=== PATIENT | female | born 1995 | race Two or more races ===

== ENCOUNTER → 2020-05-04 09:30 | Outpatient (BNVA) | payer MEDICAID, SELFPAY | PROVIDERS: PCP Internal Medicine; Visit Provider Orthopaedic Surgery | DX: G56.01 Carpal tunnel syndrome, right upper limb (principal) | CPT/HCPCS: 99202 ==

== ENCOUNTER → 2020-07-04 13:20 | Outpatient (BNVA) | payer MEDICAID, SELFPAY | PROVIDERS: PCP Internal Medicine; Visit Provider Physician Assistant | DX: G56.01 Carpal tunnel syndrome, right upper limb (principal) | CPT/HCPCS: 99212 ==

== ENCOUNTER 2020-07-06 11:12 | Day surgery (SDC) | payer MEDICAID, SELFPAY ==
--- NOTE | 2020-07-06 11:52 | W.PM.OPN ---
Operative Note Operative Note Date of Service: 07/06/20 Narrative: Preop diagnosis: 1. Right Carpal tunnel syndrome Postop diagnosis: 1. Right Carpal tunnel syndrome Procedure: 1. Right Carpal tunnel release Surgeon: Angela Lambert MD Anesthesia: local block using 1% lidocaine with epinephrine Findings: Thickened transverse carpal ligament. EBL: Less than 5 mL Specimens: None Complications: None Disposition: Brought to recovery room in stable condition Plan: Follow-up for 7-10 days for wound check and suture removal Indications: The patient is 25 years old, with right carpal tunnel syndrome that has been unresponsive to nonoperative management. The risks and benefits of operative treatment including but not limited to risk of damage to blood vessels, nerves, tendons, infection, persistent pain, persistent symptoms, or possible need for additional surgery were discussed with the patient and the patient wishes to proceed with surgery. Procedure: Once consent was obtained a local block was performed using a combination of 1% lidocaine with epinephrine. The patient was then brought back to the operating suite and placed on the operative table in supine position. A tourniquet was applied to the proximal aspect of the right upper extremity and the limb was prepped and draped in a standard surgical fashion. Once assured that we had a good block, a 1.5 cm longitudinal incision was made centered over the right carpal tunnel. The incision was made through the skin to the subcutaneous tissues using a #15 blade. Dissection was made down to the level of the transverse carpal ligament with care being taken to protect the palmar cutaneous nerve. Once the transverse carpal ligament was clearly visualized, a longitudinal incision was made in the transverse carpal ligament 1st using a #15 blade, then using tenotomy scissors under direct visualization. Care was taken to look for and protect the motor branch of the median nerve when seen in this area. Once satisfied with our carpal tunnel release the wound was copiously irrigated with normal saline and hemostasis was obtained with a brief period of local pressure. The skin edges were reapproximated with some 5.0 nylon suture material and a sterile dressing was applied. The patient appears to have tolerated the procedure well and with no complications. All digits were well vascularized at the conclusion of the case.
[2020-07-06 12:01] VITALS: BMI 38.4
[2020-07-06 12:12] VITALS: BP 111/55; PULSE 83; RESP 18; TEMP 36.1; O2SAT 98
[2020-07-06 14:09] VITALS: BP 126/75; PULSE 81; RESP 18; TEMP 37.4; O2SAT 96
--- NOTE | 2020-07-06 14:21 | MHC.SHP ---
Pre-Procedural Eval Section B Chief Complaint: carpal tunnel syndrome Allergies: Allergies Allergy/AdvReac Type Severity Reaction Status Date / Time dicyclomine [Bentyl] Allergy Unknown nausea, Verified 05/21/19 00:00 fatigue, dizziness cholestyramine AdvReac Unknown nausea and Verified 10/12/13 00:00 vomiting Cholestramine Allergy Unknown nausea and Uncoded 05/21/19 00:00 abd pain Plan I have reviewed the history and physical and performed a pertinent physical examination on my patient. No changes have occurred unless specified.
== END 2020-07-06 14:24 | disposition home or self-care (01) ==
PROVIDERS: PCP Internal Medicine; Visit Provider Orthopaedic Surgery
PROC: (CPT 64721; principal; 2020-07-06 13:50)
DX: G56.01 Carpal tunnel syndrome, right upper limb (principal); Z88.8 Allergy status to other drugs, medicaments and biological substances
CPT/HCPCS: 64721

== ENCOUNTER → 2020-07-17 08:45 | Outpatient (BNVA) | payer MEDICAID, SELFPAY | PROVIDERS: Visit Provider Physician Assistant | DX: G56.01 Carpal tunnel syndrome, right upper limb (principal) | CPT/HCPCS: 99212 ==

== ENCOUNTER → 2020-10-10 07:25 | Outpatient (BNVA) | payer MEDICAID, SELFPAY | PROVIDERS: PCP Internal Medicine; Visit Provider Surgery ==

== ENCOUNTER → 2020-10-12 08:12 | Outpatient (BNVA) | payer MEDICAID, SELFPAY | PROVIDERS: PCP Internal Medicine; Visit Provider Dietitian, Registered ==

== ENCOUNTER 2020-10-17 09:38 | Outpatient (REF) | payer MEDICAID, SELFPAY ==
--- NOTE | ~2020-10-17 | XR_ITS ---
EXAMINATION: XR CHEST CLINICAL INFORMATION: Obesity COMPARISON: Previous chest x-ray February 2018 TECHNIQUE: 2 views of the chest were obtained. FINDINGS: No significant abnormality is noted involving the heart, lungs, mediastinum, bony thorax or soft tissues. XR/XR chest 2V IMPRESSION: Unremarkable examination.
--- NOTE | 2020-10-17 09:48 | ECG_ITS ---
Test Reason : OBESITY Blood Pressure : / mmHG Vent. Rate : 089 BPM Atrial Rate : 089 BPM P-R Int : 160 ms QRS Dur : 090 ms QT Int : 362 ms P-R-T Axes : 048 029 026 degrees QTc Int : 440 ms Normal sinus rhythm Normal ECG When compared to the previous EKG of No significant changes seen Referred By: Carmine Castellon Electronically Signed By:Suhas Valenzuela
[2020-10-17 10:21] LABS: MANUAL DIFF FLAG NO
[2020-10-17 10:38] LABS: Estimated Average Glucose 111 mg/dL; Hemoglobin A1c % 5.5 %
[2020-10-17 10:40] LABS: Basophils Percent Auto 0.4 % (0-2); Eosinophils Absolute Auto 0.2 X10*3/uL (0.0-0.4); Eosinophils Percent Auto 2.4 % (0-4); Hematocrit 42.7 % (37-47); Hemoglobin 13.5 g/dl (12.0-16.0); Imm Gran Abs Auto 0.01 X10*3/uL (0.00-0.03); Imm Gran Pct Auto 0.1 % (0.0-0.4); Lymphocytes Absolute Auto 2.3 X10*3/uL (1.2-4.9); Lymphocytes Percent Auto 33.5 % (20-40); Mean Corpuscular HGB Conc 31.6 g/dl (31.0-35.0); Mean Corpuscular Hemoglobin 25.4 pg (27.0-33.0); Mean Corpuscular Volume 80.3 fL (80-98); Mean Platelet Volume 11.6 fL (9.4-12.3); Monocytes Absolute Auto 0.4 X10*3/uL (0.1-1.2); Monocytes Percent Auto 6.3 % (2-11); Neutrophils Absolute Auto 3.8 X10*3/uL (2.0-8.3); Neutrophils Percent Auto 57.3 % (45-73); Platelet Count 230 X10*3/uL (160-400); Red Blood Count 5.32 X10*6/uL (4.20-5.50); Red Cell Distribution Width 13.3 % (11.0-16.0); White Blood Count 6.7 X10*3/uL (4.8-10.8)
[2020-10-17 12:00] LABS: Folate 18.8 ng/mL (> or = 4.0); Vitamin B12 300 pg/mL (200-900)
[2020-10-17 12:53] LABS: Alanine Aminotransferase 28 U/L (0-31); Albumin Level 4.2 g/dL (3.5-5.0); Alkaline Phosphatase 77 U/L (39-117); Anion Gap 11 (12-20); Aspartate Amino Transferase 22 U/L (5-31); Bilirubin Total 0.9 mg/dL (0.0-1.0); Blood Urea Nitrogen 12 mg/dL (9-16); C Reactive Protein 0.86 mg/dL (< or = 0.50); Calcium 9.5 mg/dL (8.4-10.2); Carbon Dioxide 28 mmol/L (22-29); Chloride 105 mmol/L (96-108); Cholesterol 179 mg/dL; Estimated Glomerular Filt Rate > 60; Glucose Random 101 mg/dL (60-115); HDL Cholesterol 42 mg/dL; Iron 78 mcg/dL (30-160); LDL Cholesterol Calculated 108 mg/dl; Percent Iron Saturation 25 % (15-50); Potassium 4.6 mmol/L (3.3-5.1); Sodium 139 mmol/L (135-145); Total Iron Binding Capacity 312 mcg/dL (228-428); Total Protein 7.2 g/dL (6.5-8.0); Triglycerides 148 mg/dL; Unsaturated Iron Binding 234 ug/dL
[2020-10-17 13:14] LABS: Ferritin 35 ng/mL (10-122); TSH reflex Free T4 2.74 uIU/mL (0.32-4.0); Vitamin D 25-OH Total 20.2 ng/mL (>30)
[2020-10-18 09:31] LABS: Insulin Level Total 18.1 uIU/mL
[2020-10-18 14:27] LABS: Calcium (PTHI) 9.2 mg/dL (8.6-10.2); PTHI 69 pg/mL (14-64)
[2020-10-20 17:07] LABS: Zinc 76 mcg/dL (60-130)
[2020-10-20 20:22] LABS: Vitamin A 43 mcg/dL (38-98)
[2020-10-23 08:42] LABS: Vitamin B1 15 nmol/L (8-30)
== END 2020-10-17 09:39 | disposition home or self-care (01) ==
LOC: HO.LAB 09:38
PROVIDERS: PCP Internal Medicine; Visit Provider Surgery
DX: E66.9 Obesity, unspecified (principal); K21.9 Gastro-esophageal reflux disease without esophagitis; Z68.39 Body mass index [BMI] 39.0-39.9, adult
CPT/HCPCS: 36415; 71046; 80053; 80061; 82306; 82607; 82728; 82746; 83036; 83525; 83540; 83970; 84425; 84443; 84590; 84630; 85025; 86140; 93005

== ENCOUNTER → 2020-11-17 07:30 | Outpatient (BNVA) | payer MEDICAID, SELFPAY | PROVIDERS: PCP Internal Medicine; Visit Provider Surgery ==

== ENCOUNTER → 2021-01-04 08:12 | Outpatient (BNVA) | payer MEDICAID, SELFPAY | PROVIDERS: PCP Internal Medicine; Visit Provider Dietitian, Registered | DX: E66.01 Morbid (severe) obesity due to excess calories (principal) | CPT/HCPCS: 97802 ==

== ENCOUNTER 2021-01-05 09:50 | Outpatient (REF) | payer MEDICAID, SELFPAY ==
[2021-01-06 15:43] LABS: H Pylori Breath Test Negative (Negative)
== END 2021-01-05 09:51 | disposition home or self-care (01) ==
LOC: CF 09:50
PROVIDERS: Visit Provider Surgery
DX: A04.8 Other specified bacterial intestinal infections (principal)
CPT/HCPCS: 36415; 83013; 99211

== ENCOUNTER 2021-01-17 09:00 | Outpatient (REF) | payer MEDICAID, SELFPAY ==
--- NOTE | ~2021-01-17 | US_ITS ---
EXAMINATION: US COMPLETE ABDOMEN WITH LIVER ELASTOGRAPHY CLINICAL INFORMATION: Obesity. COMPARISON: None. TECHNIQUE: Real-time imaging of the abdominal viscera. Noninvasive ultrasound liver fibrosis assessment is performed using Rachel ElastPQ point quantification shear wave elastography (pSWE) with a C5-2 MHz transducer. Multiple elastography samples are obtained. FINDINGS: PANCREAS: Normal. The visualized pancreatic head and body are normal in appearance. The remainder of the pancreas is obscured from visualization by the overlying bowel gas. ABDOMINAL AORTA: The proximal, middle, and distal aortic segments are normal in caliber. INFERIOR VENA CAVA: Visualized portions are normal. LIVER: Normal. The liver demonstrates normal size, contour and echogenicity. No focal lesion or intrahepatic biliary duct dilatation. The right lobe measures 14.6 cm in length. The left lobe measures 9.01 cm in length. Portal flow is hepatopedal. Shear wave liver elastography median stiffness is 1.13 m/s (reference: normal median stiffness is 1.3 m/s or less). IQR/median stiffness to assess sampling precision is 0.16 (reference: good quality data set is IQR/median stiffness of 0.15 or less). GALLBLADDER: The gallbladder has been surgically removed. COMMON BILE DUCT: Normal in caliber measuring 0.43 cm in diameter. RIGHT KIDNEY: Normal. No hydronephrosis. No renal calculi or focal parenchymal lesions. The kidney measures 9.4 cm in maximum dimension. LEFT KIDNEY: Normal. No hydronephrosis. No renal calculi or focal parenchymal lesions. The kidney measures 10.2 cm in maximum dimension. SPLEEN: Normal. The spleen measures 10.2 cm in maximum dimension. FREE FLUID: None. US/US abdomen comp w elastography IMPRESSION: 1. Unremarkable complete abdomen ultrasound. 2. Liver elastography: Median liver stiffness 1.13 m/s suggestive of a normal study. REFERENCE: Society of Radiologists in Ultrasound Liver Stiffness Thresholds (2020): LIVER STIFFNESS THRESHOLDS: *Liver Stiffness equal or less than 1.3 m/s: High probability of being normal. *Liver Stiffness less than 1.7 m/s: In the absence of other known clinical signs, rules out compensated advanced chronic liver disease. *Liver Stiffness 1.7-2.1 m/s: Suggestive of compensated advanced chronic liver disease but need further test for confirmation. *Liver Stiffness over 2.1 m/s: Rules in compensated advanced chronic liver disease. *Liver Stiffness over 2.4 m/s: Suggestive of clinically significant portal hypertension. QUALITY OF DATA SET: *IQR/Median value equal or less than 0.15 implies a quality data set. *IQR/Median value over 0.15 implies a poor quality data set. SIGNIFICANT CHANGE FROM PRIOR EXAM: Significant change if liver stiffness measurement is 10% or greater from prior exam. OTHER CONSIDERATIONS: The stage of liver fibrosis may be overestimated in the setting of acute hepatitis, liver inflammation, elevated liver function tests, hepatic vascular congestion, obstructive cholestasis, non-fasting state, and infiltrative diseases such as amyloidosis and lymphoma. In some patients with NAFLD, the liver stiffness thresholds for compensated advanced chronic liver disease may be lower. In causes other than viral hepatitis and NAFLD, liver stiffness thresholds are not well established.
--- NOTE | ~2021-01-17 | FL_ITS ---
EXAMINATION: XR GI SERIES CLINICAL INFORMATION: Obesity. Preop evaluation. COMPARISON: None. TECHNIQUE: Routine upper GI air-contrast study was performed. FINDINGS: Following oral administration of thick barium and effervescent granules in upright position, there is normal perfusion of bolus from the oral cavity through the pharynx and esophagus and into the stomach without any obstruction or narrowing. On placing patient supine and prone, the course, caliber and peristalsis of stomach and the duodenum are normal. No gastroesophageal reflux or hiatal hernia seen. There is evidence of previous cholecystectomy. FLUOROSCOPY TIME: 1.5 minutes. DOSE AREA PRODUCT: 26.668 Gy-cm2 (microgray-meter squared). FL/FL upper GI series IMPRESSION: Unremarkable upper GI exam.
== END 2021-01-17 09:01 | disposition home or self-care (01) ==
LOC: HO.US 09:00
PROVIDERS: PCP Internal Medicine; Visit Provider Surgery
DX: Z01.818 Encounter for other preprocedural examination (principal); K21.9 Gastro-esophageal reflux disease without esophagitis; E66.9 Obesity, unspecified; Z68.39 Body mass index [BMI] 39.0-39.9, adult
CPT/HCPCS: 74240; 76705; 76981

== ENCOUNTER → 2021-02-12 08:08 | Outpatient (BNVA) | payer MEDICAID, SELFPAY | PROVIDERS: PCP Internal Medicine; Referring Provider Surgery; Visit Provider Dietitian, Registered | DX: E66.01 Morbid (severe) obesity due to excess calories (principal) | CPT/HCPCS: 97803 ==

== ENCOUNTER 2021-07-05 12:43 | Outpatient (REF) | payer MEDICAID, SELFPAY ==
[2021-07-06 00:56] LABS: CT PCR NOT DETECTED (Not Detect.); NG PCR NOT DETECTED (Not Detect.)
[2021-07-06 12:16] LABS: BV Int Neg Control Negative (Negative); BV Int Pos Control Positive (Positive)
[2021-07-08 05:26] LABS: HPV mRNA E6/E7 rflx Not Detected (Not Detected)
== END 2021-07-05 12:44 | disposition home or self-care (01) ==
LOC: HO.LAB 12:43
PROVIDERS: PCP Internal Medicine; Visit Provider Advanced Practice Midwife
DX: Z01.419 Encounter for gynecological examination (general) (routine) without abnormal findings (principal); E66.01 Morbid (severe) obesity due to excess calories; N92.6 Irregular menstruation, unspecified; F43.9 Reaction to severe stress, unspecified; Z20.2 Contact with and (suspected) exposure to infections with a predominantly sexual mode of transmission; Z79.899 Other long term (current) drug therapy; Z86.16 Personal history of COVID-19; Z87.42 Personal history of other diseases of the female genital tract; Z32.02 Encounter for pregnancy test, result negative
CPT/HCPCS: 81025; 87480; 87491; 87510; 87591; 87624; 87660; 88142

== ENCOUNTER 2022-01-30 08:24 | Outpatient (REF) | payer MEDICAID, SELFPAY ==
--- NOTE | ~2022-01-30 | XR_ITS ---
EXAMINATION: XR WRIST, RIGHT CLINICAL INFORMATION: Pain right wrist COMPARISON: None TECHNIQUE: PA, lateral, and oblique views of the right wrist. FINDINGS: The bones and soft tissues are normal. No fracture. Alignment is anatomic with normal joint spaces. No erosions or abnormal soft tissue calcifications. XR/XR wrist RT min 3V IMPRESSION: Unremarkable right wrist exam.
== END 2022-01-30 08:25 | disposition home or self-care (01) ==
LOC: HO.HOSX 08:24
PROVIDERS: Visit Provider Orthopaedic Surgery
DX: M67.431 Ganglion, right wrist (principal)
CPT/HCPCS: 20612; 73110; 99202

== ENCOUNTER → 2022-10-01 12:33 | Outpatient (BNVA) | payer MEDICAID, SELFPAY | PROVIDERS: PCP Internal Medicine; Visit Provider Advanced Practice Midwife | DX: N92.6 Irregular menstruation, unspecified (principal); N91.1 Secondary amenorrhea; L68.0 Hirsutism; L65.9 Nonscarring hair loss, unspecified; L70.9 Acne, unspecified; F43.9 Reaction to severe stress, unspecified; E66.01 Morbid (severe) obesity due to excess calories | CPT/HCPCS: 99212 ==

== ENCOUNTER 2022-11-28 10:45 | Outpatient (REF) | payer MEDICAID, SELFPAY ==
--- NOTE | ~2022-11-28 | US_ITS ---
EXAMINATION: US PELVIS CLINICAL INFORMATION: Irregular menstruation. Pelvic pain. COMPARISON: None available. TECHNIQUE: Ultrasound of the pelvis is performed using both transabdominal and transvaginal transducers along with Doppler. Transvaginal imaging is performed due to inadequate visualization transabdominally. FINDINGS: Uterus: The uterus is anteverted and measures 10.2 x 3.6 x 4.0 cm. The double wall endometrial thickness is 0.8 mm. Incidental nabothian cysts in the cervix. The uterus is smooth in contour and has normal myometrial echogenicity. No visible fibroid. Adnexa: Both ovaries are visualized. There is normal color flow to the adnexa. There is no ovarian torsion. There is no pelvic ascites or fluid collection. No additional findings. Right ovary measures 3.0 x 1.9 x 2.5 cm. Volume 7.5 mL. No abnormality seen. Left ovary measures 3.6 x 2.0 x 1.9 cm. Volume 7.2 mL. No abnormality seen. US/US pelvic and transvaginal IMPRESSION: Normal pelvic ultrasound.
== END 2022-11-28 10:46 | disposition home or self-care (01) ==
LOC: HO.US 10:45
PROVIDERS: PCP Internal Medicine; Visit Provider Advanced Practice Midwife
DX: N92.6 Irregular menstruation, unspecified (principal)
CPT/HCPCS: 76830; 76856

== ENCOUNTER 2022-12-06 18:17 | Outpatient (REF) | payer MEDICAID, SELFPAY | END 2022-12-06 18:18 | disposition home or self-care (01) | LOC: HO.HHCLNP 18:17 | PROVIDERS: Visit Provider Internal Medicine | DX: R39.9 Unspecified symptoms and signs involving the genitourinary system (principal) | CPT/HCPCS: 87086 ==

== ENCOUNTER 2023-01-01 11:06 | Outpatient (AMB) | payer MEDICAID, SELFPAY ==
--- NOTE | 2023-01-01 11:39 | A.OFFVIS_ITS ---
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 She lives with her mother but her kids are getting strong and harder to handle they are at school now so she is route relaxing for the 1st time. She does have them in a program. She says she has not had a chance to go for all the blood work that I ordered for her that I ordered because she said she had not had a chance to see her primary care provider. She says she did see her primary care provider in November and she ordered blood work as well but she has not got a chance to do that either. She also said that her primary care provider put in another referral for her for a weight [place] doctor in [place] new but she has not heard anything about that and she does not know anything about where that will be she says that she will be able to get a ride through [place] [facility] [address] transportation. I asked her why not come here but she said that that is where this referral was because she did not ever here from the others either. I talked to her about the benefits of a Mirena IU S to help manage her amenorrhea in a more controlled manageable way and we would additionally give her a method of control. She says she does not want to have anything inside her. I offered her control pills but she said that they made her sleepy in the past and she does not want to take those she also had offered and voiced again that when she eats something sweet it makes her sleepy after. I reminded her that this is why I ordered the blood sugar testing to test to see if she was diabetic and that it was important to get those tests whether they were from my orders or her primary care providers and when she gets them I want her to call her primary and get the results of them. Since she did not want to take control pills and she does not want the Mirena. The other option to help control her menses would be to have her have her regular withdrawal bleed with though monthly use of Provera she says she is not sexually active because of being too busy with her children and is not likely to be and is not planning on it at all. Therefore the 3rd option of using monthly Provera was chosen and she would prefer that she said she did not have any ill effects from taking the 10 days of the Provera in October and so I have refilled that prescription for a monthly use of Provera in the 1st 10 days of the month for 6 months and she and I will have a follow-up visit after that. I want her to write down the dates of her. . I also stressed the importance of trying to take care of her health a little bit now because she has shown me many challenges on her plate but if she is not healthy enough to deal with them her life will be made more difficult. She is not working currently. [facility] Medical History (Updated 10/01/22 @ 14:37 by Maddy Ang CNM) Anxiety Back pain BMI 39.0-39.9,adult Depression GERD (gastroesophageal reflux disease) History of asthma Morbid obesity Obesity Surgical History Hx of carpal tunnel repair Hx of cholecystectomy Hx of emergency section Hx of wisdom tooth extraction Family History Mother Hypertension Arthritis Asthma Allergy Family/Other Diabetes Hypertension Arthritis Brother No problems noted. Brother Heart problem Brother No problems noted. Sister Asthma Sister Obesity Son Autistic disorder Son Autistic disorder Social History Alcohol intake: never Patient Tobacco Use Status: Never used Tobacco Current occupational status: unemployed Current occupation: right handed Female Reproductive History Menstrual Date of last pap smear: 07/05/21 (neg pap and hpv) History of abnormal pap smear: Yes (06/13 lgsil 03/13 ascus +hpv) Physical Exam Vital Signs: Last Vital Signs BP 100/62 01/01/23 11:43 BMI result Body Mass Index 42.9 Results Reviewed Results Reviewed: [address] [address] Ultrasound Report Signed with Addenda Patient: Aracelis Soriano MR#: [id number] : 1995 Acct:[id number] Age/Sex: 27 / F ADM Date: 11/28/22 Loc: HO.US Attending Dr: Maddy Ang CNM Ordering Physician: Maddy Ang CNM Date of Service: 11/28/22 Procedure(s): US pelvic and transvaginal Accession Number(s): [id number] cc: Maddy Ang CNM~ ADDENDUMAddendum: The double wall endometrial thickness is 8 mm (0.8 cm). Addendum Dictated By: Cem Rowley MD Addendum Signed By: <Electronically signed by Cem Rowley MD in [place]> 12/01/22 1551 Addendum Cosigned By: DD/ /18/1101 TD/TT: / EXAMINATION:? US PELVIS CLINICAL INFORMATION:? Irregular menstruation. Pelvic pain. COMPARISON: None available. TECHNIQUE: Ultrasound of the pelvis is performed using both transabdominal and transvaginal transducers along with Doppler. Transvaginal imaging is performed due to inadequate visualization transabdominally. FINDINGS: Uterus: The uterus is anteverted and measures 10.2 x 3.6 x 4.0 cm. The double wall endometrial thickness is 0.8 mm. Incidental nabothian cysts in the cervix. The uterus is smooth in contour and has normal myometrial echogenicity. ? No visible fibroid. Adnexa: Both ovaries are visualized. There is normal color flow to the adnexa. There is no ovarian torsion.? There is no pelvic ascites or fluid collection. No additional findings. Right ovary measures 3.0 x 1.9 x 2.5 cm. Volume 7.5 mL. No abnormality seen. Left ovary measures 3.6 x 2.0 x 1.9 cm. Volume 7.2 mL. No abnormality seen. US/US pelvic and transvaginal IMPRESSION: Normal pelvic ultrasound. Dictated By: Cem Rowley MD Signed By: <Electronically signed by Cem Rowley MD in OV> 12/01/22 1548 DD/ 1116 TD/TT:? Electrical Wirer: DM Assessment & Plan Assessment & Plan (1) Hair thinning: Code(s): L65.9 - Nonscarring hair loss, unspecified (2) Acne: Code(s): L70.9 - Acne, unspecified (3) Hirsutism: Code(s): L68.0 - Hirsutism (4) Amenorrhea, secondary: Code(s): N91.1 - Secondary amenorrhea (5) Obesity, morbid, BMI 40.0-49.9: Code(s): E66.01 - Morbid (severe) obesity due to excess calories (6) Menstrual periods irregular: Code(s): N92.6 - Irregular menstruation, unspecified (7) Hx of abnormal cervical Pap smear: Comment: cin1- 2016, ascus 2016, pap neg 2018. pap done 07/05/21=neg,neg hpv Code(s): Z87.42 - Personal history of other diseases of the female genital tract Plan Is here for follow-up of her ultrasound. 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 She lives with her mother but her kids are getting strong and harder to handle they are at school now so she is route relaxing for the 1st time. She does have them in a program. She says she has not had a chance to go for all the blood work that I ordered for her that I ordered because she said she had not had a chance to see her primary care provider. She says she did see her primary care provider in November and she ordered blood work as well but she has not got a chance to do that either. She also said that her primary care provider put in another referral for her for a weight loss doctor in [place] who is new but she has not heard anything about that and she does not know anything about where that will be she says that she will be able to get a ride through [place] [facility] public transportation. I asked her why not come here but she said that that is where this referral was because she did not ever here from the others either. I talked to her about the benefits of a Mirena IU S to help manage her am enorrhea in a more controlled manageable way and we would additionally give her a method of control. She says she does not want to have anything inside her. I offered her control pills but she said that they made her sleepy in the past and she does not want to take those she also had offered and voiced again that when she eats something sweet it makes her sleepy after. I reminded her that this is why I ordered the blood sugar testing to test to see if she was diabetic and that it was important to get those tests whether they were from my orders or her primary care providers and when she gets them I want her to call her primary and get the results of them. Since she did not want to take control pills and she does not want the Mirena. The other option to help control her menses would be to have her have her regular withdrawal bleed with though monthly use of Provera she says she is not sexually active because of being too busy with her children and is not likely to be and is not planning on it at all. Therefore the 3rd option of using monthly Provera was chosen and she would prefer that she said she did not have any ill effects from taking the 10 days of the Provera in October and so I have refilled that prescription for a monthly use of Provera in the 1st 10 days of the month for 6 months and she and I will have a follow-up visit after that. I want her to write down the dates of her. . I also stressed the importance of trying to take care of her health a little bit now because she has shown me many challenges on her plate but if she is not healthy enough to deal with them her life will be made more difficult. She is not working currently. Additionally she requested a prescription for Valtrex so that she could take it when she gets an outbreak which she says is about twice a year. I checked in the prescription records and I gave her this prescription in September. She said she had not checked for it I reminded her to check with the pharmacy. Medications: Changed From medroxyprogesterone (Provera) 10 mg PO DAILY 10 tabs 1RF To medroxyprogesterone (Provera) take daily for 10 days at the beginning of each month for 6 month 10 mg PO DAILY 10 tabs 6RF Coding Level of Care Code Est Pt Level 3 (60402) Diagnoses Hair thinning L65.9 Acne L70.9 Hirsutism L68.0 Amenorrhea, secondary N91.1 Obesity, morbid, BMI 40.0-49.9 E66.01 Menstrual periods irregular N92.6 Hx of abnormal cervical Pap smear Z87.42
[2023-01-01 11:43] VITALS: BP 100/62; BMI 42.9
== END 2023-01-01 12:49 | disposition home or self-care (01) ==
PROVIDERS: PCP Internal Medicine; Visit Provider Advanced Practice Midwife
DX: L65.9 Nonscarring hair loss, unspecified (principal); L70.9 Acne, unspecified; L68.0 Hirsutism; N91.1 Secondary amenorrhea; E66.01 Morbid (severe) obesity due to excess calories; N92.6 Irregular menstruation, unspecified; Z87.42 Personal history of other diseases of the female genital tract
CPT/HCPCS: 99213

== ENCOUNTER → 2023-01-01 11:06 | Outpatient (BNVA) | payer MEDICAID, SELFPAY | PROVIDERS: PCP Internal Medicine; Visit Provider Advanced Practice Midwife | DX: L65.9 Nonscarring hair loss, unspecified (principal); L70.9 Acne, unspecified; L68.0 Hirsutism; N91.1 Secondary amenorrhea; N92.6 Irregular menstruation, unspecified; E66.01 Morbid (severe) obesity due to excess calories; Z68.41 Body mass index [BMI] 40.0-44.9, adult; Z87.42 Personal history of other diseases of the female genital tract | CPT/HCPCS: 99212 ==

== ENCOUNTER → 2023-01-22 10:24 | Outpatient (BNVA) | payer MEDICAID, SELFPAY | PROVIDERS: PCP Internal Medicine; Visit Provider Physician Assistant ==

== ENCOUNTER 2023-02-21 10:56 | Outpatient (REF) | payer MEDICAID, SELFPAY ==
--- NOTE | ~2023-02-21 | XR_ITS ---
EXAMINATION: XR CHEST CLINICAL INFORMATION: Morbid severe obesity due to excess calories COMPARISON: 10/17/2020 TECHNIQUE: 3 views of the chest. FINDINGS: Dextroscoliosis of the thoracic spine. There is no gross pneumothorax. Heart size is normal. No pleural effusion. No focal consolidation to suggest pneumonia. Degenerative changes in the thoracic spine. Surgical clips in the upper abdomen. XR/XR chest 2V IMPRESSION: No evidence of pneumonia.
--- NOTE | 2023-02-21 11:45 | ECG_ITS ---
Test Reason : e66.01 Blood Pressure : / mmHG Vent. Rate : 092 BPM Atrial Rate : 092 BPM P-R Int : 162 ms QRS Dur : 090 ms QT Int : 364 ms P-R-T Axes : 052 045 035 degrees QTc Int : 450 ms Normal sinus rhythm Normal ECG When compared with ECG of 17-OCT-2020 10:16, No significant change was found Referred By: Edward Christie Electronically Signed By:EVELYN HORNER MD
[2023-02-21 12:00] LABS: MANUAL DIFF FLAG NO
[2023-02-21 13:51] LABS: Estimated Average Glucose 105 mg/dL; Hemoglobin A1c % 5.3 % (<6.0)
[2023-02-21 13:52] LABS: Basophils Percent Auto 0.4 % (0-2); Eosinophils Absolute Auto 0.1 X10*3/uL (0.0-0.4); Eosinophils Percent Auto 2.1 % (0-4); Hematocrit 40.6 % (37.0-47.0); Hemoglobin 12.9 g/dl (12.0-16.0); Imm Gran Abs Auto 0.01 X10*3/uL (0.00-0.03); Imm Gran Pct Auto 0.1 % (0.0-0.4); Lymphocytes Absolute Auto 1.9 X10*3/uL (1.2-4.9); Lymphocytes Percent Auto 27.9 % (20-40); Mean Corpuscular HGB Conc 31.8 g/dl (31.0-35.0); Mean Corpuscular Hemoglobin 25.3 pg (27.0-33.0); Mean Corpuscular Volume 79.6 fL (80.0-98.0); Monocytes Absolute Auto 0.4 X10*3/uL (0.1-1.2); Neutrophils Absolute Auto 4.3 x10*3/uL (2.0-8.3); Neutrophils Percent Auto 63.5 % (45-73); Platelet Count 258 X10*3/uL (160-400); White Blood Count 6.7 X10*3/uL (4.8-10.8)
[2023-02-21 14:35] LABS: Alanine Aminotransferase 33 U/L (0-31); Albumin Level 4.5 g/dL (3.5-5.0); Alkaline Phosphatase 73 U/L (39-117); Anion Gap 12 (12-20); Aspartate Amino Transferase 20 U/L (5-31); Bilirubin Total 0.8 mg/dL (0.0-1.0); Blood Urea Nitrogen 9 mg/dL (9-16); C Reactive Protein 0.81 mg/dL (< or = 0.50); Calcium 9.8 mg/dL (8.4-10.2); Carbon Dioxide 25 mmol/L (22-29); Chloride 105 mmol/L (96-108); Cholesterol 191 mg/dL (<200); Estimated Glomerular Filt Rate > 60; Glucose Random 95 mg/dL (60-115); HDL Cholesterol 45 mg/dL (>40); Iron 48 mcg/dL (30-160); LDL Cholesterol Calculated 126 mg/dL (<100); Percent Iron Saturation 16 % (15-50); Potassium 3.8 mmol/L (3.3-5.1); Sodium 138 mmol/L (135-145); Total Iron Binding Capacity 294 mcg/dL (228-428); Triglycerides 104 mg/dL (<150); Unsaturated Iron Binding 246 ug/dL
[2023-02-21 14:56] LABS: Ferritin 25 ng/mL (10-122); Insulin 17 uU/mL (2-29); TSH reflex Free T4 1.29 uIU/mL (0.32-4.0); Vitamin D 25-OH Total 28.5 ng/mL (>30)
[2023-02-21 14:57] LABS: Folate 13.2 ng/mL (> or = 4.0); Vitamin B12 475 pg/mL (200-900)
[2023-02-24 11:48] LABS: Calcium (PTHI) 9.3 mg/dL (8.6-10.2); PTHI 92 pg/mL (16-77)
[2023-02-25 01:09] LABS: Zinc 77 mcg/dL (60-130)
[2023-02-26 18:39] LABS: Vitamin A 42 mcg/dL (38-98)
[2023-02-27 14:37] LABS: Vitamin B1 10 nmol/L (8-30)
== END 2023-02-21 10:57 | disposition home or self-care (01) ==
LOC: HO.LAB 10:56
PROVIDERS: PCP Internal Medicine; Visit Provider Physician Assistant Surgical
DX: E66.01 Morbid (severe) obesity due to excess calories (principal); E53.8 Deficiency of other specified B group vitamins; E55.9 Vitamin D deficiency, unspecified
CPT/HCPCS: 36415; 71046; 80053; 80061; 82306; 82607; 82728; 82746; 83036; 83525; 83540; 83970; 84425; 84443; 84590; 84630; 85025; 86140; 93005; 99212

== ENCOUNTER 2023-02-21 10:56 | Outpatient (AMB) | payer MEDICAID, SELFPAY ==
--- NOTE | 2023-02-21 10:57 | MHC.OFFVISWM ---
Intake VS Expanded 02/21/23 11:08 BP 118/71 Blood Pressure Location Rt brachial Blood Pressure Position Sitting Pulse 89 Pulse Source Pulse Oximeter Temp 97.2 F Temperature Source Temporal Artery Scan Pulse Oximetry 98 Oxygen Delivery Method Room Air Height 5 ft 4 in Weight 250 lb 3.2 oz BMI 42.9 Body Fat % 49.6 Body Fat Mass 123.8 Fat Free Mass 126.2 Visceral Fat Rating 13.0 Body Water % 36.2 Body Water Mass 90.6 Muscle Mass/Score 119.8 Basal Metabolic Rate/Score 1,840 Intake Visit Reasons: (OV) Re-Est SWL BMI 44.9 Lime Trimmer Required: Yes Lime Trimmer Name: cmi Allergies No Known Allergies Allergy (Verified 02/21/23 11:01) Medication List - Last Reconciled 02/21/23 by KATINA Rebolledo albuterol sulfate 90 mcg/actuation 2 puffs inhalation QID cholecalciferol (vitamin D3) 125 mcg PO DAILY famotidine 20 mg PO BID fluticasone propionate 110 mcg/actuation (Flovent HFA) 2 puffs inhalation BID medroxyprogesterone (Provera) 10 mg PO DAILY nebulizers As directed valacyclovir 1,000 mg PO DAILY HPI HPI Comments History of Present Illness Details Pt is here to re-start the [facility] Weight Management surgical weight loss program. She was in the weight management program September through January 2021. Weight at the time of leaving the program was 235.3 lb. She was unable to follow the mealplans before but feels she is more committed at this time. Current weight is 250.2 pounds with a BMI of 42.9. She lives with her kids and mom. She is not currently working. She wakes at:?630 am, and goes to bed at?930pm. Dinner is at 6 pm. Breakfast: coffee, stevia, eggs, toast AM snack: none Lunch: rice, beans, chicken, soup PM snack: cereal w lactaid milk or cookies Dinner: soup or bananas After dinner: crackers or bread Other snacks: as above, chips Liquids: 32 oz water, 8 oz stefan roxana, Alcohol/marijuana/tobacco intake: none Exercise: none, no gym membership or car or finances to buy equipment. too far from [facility] Medical History Morbid obesity Back pain Anxiety Depression GERD (gastroesophageal reflux disease) BMI 39.0-39.9,adult Obesity History of asthma Surgical History Hx of wisdom tooth extraction Hx of cholecystectomy Hx of carpal tunnel repair Hx of emergency section Family History Mother Hypertension Arthritis Asthma Allergy Family/Other Diabetes Hypertension Arthritis Brother No problems noted. Brother Heart problem Brother No problems noted. Sister Asthma Sister Obesity Son Autistic disorder Son Autistic disorder Social History Alcohol intake: never Patient Tobacco Use Status: Never used Tobacco Current occupational status: unemployed Current occupation: right handed Review of Systems Const All systems reviewed & are unremarkable except as noted in HPI and below Physical Exam Const General: cooperative, healthy appearing and no acute distress Orientation/consciousness: patient oriented x3 HEENT Head: Yes normal to inspection Ears: hearing grossly normal bilaterally General nose exam: Normal external nose present Face and sinus: Yes normal facial exam Eyes General: appearance normal, both eyes and all related structures Resp Effort & Inspection: normal respiratory effort Auscultation: clear to auscultation bilaterally Cardio Rate: regular rate Rhythm: regular rhythm Heart sounds: S1 normal heart sound present and S2 normal heart sound present GI Inspection: Yes normal to inspection, No distended and Yes obesity Palpation (GI): Soft to palpation, nontender and no guarding Auscultation: normal bowel sounds Skin General skin exam: no rashes or lesions noted Neuro General: patient oriented x3 Extrem General: No edema Psych Appearance: grossly normal Mental Status: mental status grossly normal Speech and movement: Normal speech and movement present Affect: normal affect Attitude: cooperative Assessment & Plan Assessment & Plan (1) Obesity, morbid, BMI 40.0-49.9: Code(s): E66.01 - Morbid (severe) obesity due to excess calories Plan: This is a?27 yo female who will re-start our SWL program to prepare for bariatric surgery.? Blood work, h pylori , CXR, ECG, Abd US and UGI have been ordered. She is being scheduled for RD and BH initial consultations. She will start SWL classes and watch the first three videos before her next appointment. ? Adequate sleep of 7-8 hours per night discussed, awakening at 06:30 and going to bed around 9:30 ? Purchase body composition analyzer scale ([employer] recommended) and check weight weekly. The best time to do this is first thing in the morning after going to the bathroom. 1. Nutritional counseling: Be sure to careful read the number of scoops per shake Start with 2 Celebrate Rebuild shakes ([facility] [employer], [employer], [employer]istas), First shake (1.5 scoops in 15 oz unsweetened almond milk) at 730am-930am, Second shake, (2 scoop in 18 oz unsweetened almond milk) 1030am-1230pm 2 Celebrate protein bar (Celebrate bars at [facility] [employer], [employer], [employer]) First bar at 1230pm-230pm Second bar at 330pm-530pm. Dinner at 630pm (9 forks of protein and 9 forks of salad/vegetables). Meal to include lean meat (beef, fish, pork, turkey, chicken), cooked vegetables or a salad with olive oil and/or fruits (berries, pears, apples, kiwi). Avoid salt, breads, potatoes, rice, pasta, desserts. Try to drink 64 oz of water daily and avoid soda and juices. ?2. Each shake would be drunk slowly, like coffee in a period of 2 hours. ?3. Cut each bar in 4 pieces and eat each piece in 30 min ?to make each bar last 2 hours. ?4. I emphasized the importance of measuring accurately the food portion and measure it carefully when serving the food on the plate ?5. The meal portions include 9 full-size forks of meat and 9 full-size forks of salad. You always eat the meat portion but you can replace up to half of the forks of salad/vegetables with rice, potatoes or pasta, or a fruit ?if you like. The less you do it the better weight loss will be. ?6. One full-size fork is what can be scooped on the fork without falling aside and not what can be bit with the fork. Use regular forks like those you find in a typical restaurant. ?7.? Please send me weight measurements as soon as possible and then once a week. Always include your diet and exercise plan. Alternatively come weekly at the office for weight checks and send me the measurements. ?8. Exercise counseling: Begin by watching a stretching for beginners video. Start slowly and begin to stretch your muscles. You should do this before and after each exercise session to prevent injury. Please consider joining [employer] or [employer] gym near your home. Ask the hotel operations manager or one of the trainers how to use the machines if you are unfamiliar with them. Start elliptical with a resistance of 2. Increase resistance by 1 every 3 min to your most comfortable resistance with a max resistance of 8. Reduce the resistance by 1 every 3 minutes back down to 2 and repeat cycles for 300 calories. Alternatively, start treadmill with a speed of 3.0 and incline of 0, increasing incline by 1 every 3 minutes to the highest comfortable level (max 6 for now) then decrease in the same fashion. Repeat process to a goal of 300 calories. Goal of 2000 calories burned or more weekly. You may also consider use of the stationary bike. The easiest would be to chose the fat-burn or interval training program on the machine and do this until you reach the 300 calorie goal. Alternatively, you can manually adjust the resistance in a similar fashion as mentioned above, (resistance of 2-8 with a goal speed of 12 mph). Tracking calories is essential. 9. Alternatively start walking outside daily, tracking calories with a goal of 300 calories per day, daily. You can download the melody [employer] which can track your time, distance and calories while walking outside. You press start in the melody when you start and then stop when you are finished. If you are unable to join a gym, please obtain a piece of exercise equiptment like a treadmill and follow the instructions above. 10.? It is important to avoid for at least 18 months postoperatively and it has been discussed at the information session 11. Please get labs, EKG and chest X-Ray within 1 week. 12. Discussed and answered all questions regarding?obtained consent to participate in the [place] [facility]?Registry. 13. Please follow the diet plan exactly, without any change. If you do not like something about the plan or you feel hungry, you need to communicate with me so I can help you revise the plan. You should not change the plan yourself. Text me at [phone] 14. Goal is to lose at least 12 pounds in the first month 15. Goal is to lose 10% of your weight before surgery, which is about 25 lbs. Ultimate weight goal: 225 lbs before surgery Patient is morbidly obese and is not considered stable at this time.?I spent a total of 70 minutes reviewing/updating records, examining the patient and counseling the patient on weight management as detailed above. Orders: Orders Lipid Panel Today E53.8 - Deficiency of other specified B group vitamins, E55.9 - Vitamin D deficiency, unspecified, E66.01 - Morbid (severe) obesity due to excess calories Complete Blood Count Auto Diff Today E53.8 - Deficiency of other specified B group vitamins, E55.9 - Vitamin D deficiency, unspecified, E66.01 - Morbid (severe) obesity due to excess calories C Reactive Protein Today E53.8 - Deficiency of other specified B group vitamins, E55.9 - Vitamin D deficiency, unspecified, E66.01 - Morbid (severe) obesity due to excess calories Ferritin Today E53.8 - Deficiency of other specified B group vitamins, E55.9 - Vitamin D deficiency, unspecified, E66.01 - Morbid (severe) obesity due to excess calories PTHI Today E53.8 - Deficiency of other specified B group vitamins, E55.9 - Vitamin D deficiency, unspecified, E66.01 - Morbid (severe) obesity due to excess calories TSH reflex Free T4 Today E53.8 - Deficiency of other specified B group vitamins, E55.9 - Vitamin D deficiency, unspecified, E66.01 - Morbid (severe) obesity due to excess calories Hemoglobin A1c Today E53.8 - Deficiency of other specified B group vitamins, E55.9 - Vitamin D deficiency, unspecified, E66.01 - Morbid (severe) obesity due to excess calories US abdomen comp w elastography Today E53.8 - Deficiency of other specified B group vitamins, E55.9 - Vitamin D deficiency, unspecified, E66.01 - Morbid (severe) obesity due to excess calories Insulin Today E53.8 - Deficiency of other specified B group vitamins, E55.9 - Vitamin D deficiency, unspecified, E66.01 - Morbid (severe) obesity due to excess calories IRON PROFILE Today E53.8 - Deficiency of other specified B group vitamins, E55.9 - Vitamin D deficiency, unspecified, E66.01 - Morbid (severe) obesity due to excess calories Vitamin B12 and Folate Today E53.8 - Deficiency of other specified B group vitamins, E55.9 - Vitamin D deficiency, unspecified, E66.01 - Morbid (severe) obesity due to excess calories Zinc Today E53.8 - Deficiency of other specified B group vitamins, E55.9 - Vitamin D deficiency, unspecified, E66.01 - Morbid (severe) obesity due to excess calories Comprehensive Met. Panel Today E53.8 - Deficiency of other specified B group vitamins, E55.9 - Vitamin D deficiency, unspecified, E66.01 - Morbid (severe) obesity due to excess calories Vitamin B1 Today E53.8 - Deficiency of other specified B group vitamins, E55.9 - Vitamin D deficiency, unspecified, E66.01 - Morbid (severe) obesity due to excess calories Vitamin A Today E53.8 - Deficiency of other specified B group vitamins, E55.9 - Vitamin D deficiency, unspecified, E66.01 - Morbid (severe) obesity due to excess calories H Pylori Breath Test Today E53.8 - Deficiency of other specified B group vitamins, E55.9 - Vitamin D deficiency, unspecified, E66.01 - Morbid (severe) obesity due to excess calories Vitamin D 25-OH Total Today E53.8 - Deficiency of other specified B group vitamins, E55.9 - Vitamin D deficiency, unspecified, E66.01 - Morbid (severe) obesity due to excess calories XR chest 2V Today E53.8 - Deficiency of other specified B group vitamins, E55.9 - Vitamin D deficiency, unspecified, E66.01 - Morbid (severe) obesity due to excess calories ECG 12 lead EKG Today E53.8 - Deficiency of other specified B group vitamins, E55.9 - Vitamin D deficiency, unspecified, E66.01 - Morbid (severe) obesity due to excess calories FL upper GI w air Today E53.8 - Deficiency of other specified B group vitamins, E55.9 - Vitamin D deficiency, unspecified, E66.01 - Morbid (severe) obesity due to excess calories Referrals Behavioral Health Referral E53.8 - Deficiency of other specified B group vitamins, E55.9 - Vitamin D deficiency, unspecified, E66.01 - Morbid (severe) obesity due to excess calories Nutrition/Dietitian Referral E53.8 - Deficiency of other specified B group vitamins, E55.9 - Vitamin D deficiency, unspecified, E66.01 - Morbid (severe) obesity due to excess calories Coding Level of Care Code Est Pt Level 5 (03830) Diagnoses Obesity, morbid, BMI 40.0-49.9 E66.01 Time Spent (min) 75
[2023-02-21 11:08] VITALS: BP 118/71; PULSE 89; TEMP 36.2; O2SAT 98; BMI 42.9
== END 2023-02-21 12:40 | disposition home or self-care (01) ==
PROVIDERS: PCP Internal Medicine; Visit Provider Physician Assistant Surgical
DX: E66.01 Morbid (severe) obesity due to excess calories (principal); Z68.41 Body mass index [BMI] 40.0-44.9, adult
CPT/HCPCS: 99215

== ENCOUNTER 2023-02-22 11:19 | Emergency (ER) | payer MEDICAID, SELFPAY ==
[2023-02-22 11:31] VITALS: BP 145/95; PULSE 112; RESP 19; TEMP 35.9; O2SAT 98; BMI 44.9
--- NOTE | 2023-02-22 11:32 | ED_ITS ---
HPI - URI/Sore Throat General Chief Complaint: Upper Respiratory Symptoms Stated Complaint: cough vomiting Time Seen by Provider: 02/22/23 11:49 Source: patient and RN notes reviewed Mode of arrival: ambulatory Limitations: no limitations History of Present Illness HPI Narrative: This is a 27-year-old female, with a history of asthma, presenting to the emergency department for evaluation of cough, sore throat x3 days. Patient also reports that last night she vomited once. No fevers, chills, chest pain or shortness of breath. Her children are currently here being seen for similar symptoms. No abdominal pain, current nausea, vomiting, diarrhea or constipation. No urinary symptoms. No other complaints or concerns at this time. MD elicited complaint: cough and sore throat Consistency: constant Able to tolerate fluids by mouth: Yes Exacerbating factors: nothing Relieving factors: nothing Context: sick contacts Associated symptoms: sore throat Treatments prior to arrival: none Related Data Home Medications Medication Instructions Recorded Confirmed albuterol sulfate 90 mcg/actuation 2 puff inhalation QID 10/10/20 02/21/23 aerosol inhaler nebulizers #1 ea 10/10/20 10/01/22 fluticasone propionate 110 2 puff inhalation BID 10/01/22 02/21/23 mcg/actuation HFA aerosol inhaler (Flovent HFA) famotidine 20 mg tablet 20 mg PO BID 01/22/23 02/21/23 Previous Rx's Medication Instructions Recorded cholecalciferol (vitamin D3) 125 125 mcg PO DAILY #30 caps 11/17/20 mcg (5,000 unit) capsule valacyclovir 1 gram tablet 1,000 mg PO DAILY #30 tabs 10/01/22 medroxyprogesterone 10 mg tablet 10 mg PO DAILY #10 tabs 01/01/23 (Provera) Allergies Allergy/AdvReac Type Severity Reaction Status Date / Time No Known Allergies Allergy Verified 02/21/23 11:01 Review of Systems Review of Systems: Yes all other systems are reviewed and are negative Constitutional: Constitutional: Reports as per [facility] Past Medical History Attestation statement: The following information was validated with the patient. Medical History Morbid obesity Back pain Anxiety Depression GERD (gastroesophageal reflux disease) BMI 39.0-39.9,adult Obesity History of asthma Surgical History Hx of wisdom tooth extraction Hx of cholecystectomy Hx of carpal tunnel repair Hx of emergency section Family History Family History Mother Hypertension Arthritis Asthma Allergy Family/Other Diabetes Hypertension Arthritis Brother No problems noted. Brother Heart problem Brother No problems noted. Sister Asthma Sister Obesity Son Autistic disorder Son Autistic disorder Social History Social History Alcohol intake: never Patient Tobacco Use Status: Never used Tobacco Advance Directives: No Advance Directives Information Provided: No Current occupational status: unemployed Current occupation: right handed Physical Exam Vital Signs: Vital Signs: Last Vital Signs Temp 97.8 F 02/22/23 13:37 Pulse 85 02/22/23 13:37 Resp 16 02/22/23 13:37 BP 113/58 L 02/22/23 13:37 Pulse Ox 97 02/22/23 13:37 O2 Del Method Room Air 02/22/23 13:37 BMI result Body Mass Index 44.9 Const: General: cooperative, comfortable and no acute distress Orientation/consciousness: patient oriented x3 Limitations: no limitations HEENT: Head: Yes normal to inspection, Yes normocephalic and Yes atraumatic Ears: hearing grossly normal bilaterally General nose exam: Normal external nose present Face and sinus: Yes normal facial exam Mouth: Normal oral and palatal mucosa present, oropharynx normal and moist mucous membranes Throat: Yes posterior oropharynx normal Eyes: General: appearance normal, both eyes and all related structures Eyelids: Yes eyelids normal Conjunctivae: conjunctivae normal Sclerae: sclerae normal Pupils: Equal, round and reactive pupils present EOM: EOMs intact bilaterally Neck: Neck: Yes normal visual inspection, Yes full ROM and Yes no lymphadenopathy Lymphatic: no lymphadenopathy noted Chest: Chest palpation & inspection: normal inspection of the chest Resp: Effort & Inspection: normal respiratory effort and able to speak in complete sentences Auscultation: clear to auscultation bilaterally, no crackles, no rales, no rhonchi and no wheezes Cardio: Rate: regular rate Rhythm: regular rhythm Heart sounds: S1 normal heart sound present and S2 normal heart sound present GI: Other: Abdomen is soft, nontender, nondistended. Normoactive bowel sounds present in all 4 quadrants. Inspection: Yes normal to inspection Skin: General skin exam: no rashes or lesions noted Trauma: no lacerations or abrasions Wounds: no wounds Neuro: General: patient oriented x3 and moves all extremities Cranial nerves: Yes Equal, round and reactive pupils present Extrem: General: Yes normal to inspection Right upper extremity: normal to inspection Left upper extremity: normal to inspection Right lower extremity: normal to inspection Left lower extremity: normal to inspection Course Course Course Narrative: This is an RME: Additional HPI, ROS, PE not included below will be deferred to primary provider. Patient is a 27-year-old female who presents emergency department for evaluation of 3 days with cough, sore throat, vomiting once last night. children are will with similar symptoms. Plan: Viral/ Strep A testing. Medical Decision Making Medical Decision Making [facility] Narrative: This is a 27-year-old female, with a history of asthma, presenting to the emergency department with cough and sore throat x3 days. Patient endorses 1 episode of vomiting yesterday. She has been able to eat and drink without difficulty. Patient with blood pressure 113/58, afebrile, with a pulse of 85 beats per minute. 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 On examination, oropharynx is non erythematous, with no tonsillar hypertrophy or exudates. Uvula is midline. Lungs clear to auscultation. Abdomen is soft nontender. Patient test ed negative for flu, RSV, COVID and strep today. Symptoms likely viral in nature. Discussed conservative treatment for current symptoms. Patient understands and agrees plan. Given return precautions. Stable for discharge Differential Diagnosis Differential Diagnoses: The differential diagnosis associated with the presentation includes See above Lab Data [facility] Lab Attestation statement: I reviewed the patient's lab results. Negative Labs: Lab Results 02/22/23 Range/Units 11:53 Influenza Type A (PCR) NEGATIVE (Negative) Influenza Type B (PCR) NEGATIVE (Negative) RSV RNA Qual (PCR) NEGATIVE (Negative) SARS-CoV-2 RNA (RT-PCR) NEGATIVE (Negative) S. pyogenes GrpA SHENA Negative (Negative) Discharge Plan Discharge Clinical Impression: Upper respiratory infection Patient Disposition: Home, Self-Care Instructions: Upper Respiratory Infection (ED) Additional Instructions: You tested negative for COVID, RSV, strep and flu. You likely have a virus. This will get better on its own. Drink plenty of fluids and get plenty of rest. Hot tea with honey, warm soups, and salt water gargles can help with your symptoms. You may also take Tylenol or Motrin as needed for symptoms. If any new or worsening symptoms occur including but not limited to chest pain or shortness of breath, please return for re-evaluation. Follow-up with your primary care physician. Lorenzo negativo en las pruebas de COVID, VRS, estreptococo y gripe. Probablemente tengas un virus. Arpin mejorar? por s? solo. Ysabel muchos l?quidos y descanse mucho. El t? caliente con miel, las sopas calientes y las g?rgaras con agua salada pueden ayudar con bam s?ntomas. Tambi?n puede hay Tylenol o Motrin seg?n sea necesario para los s?ntomas. Si se presenta alg?n s?ntoma nuevo o que empeora, incluidos, entre otros, dolor en el pecho o dificultad para respirar, regrese para mariama nueva evaluaci?n. Seguimiento con rodriguez m?dico de atenci?n primaria. Prescriptions: No Action cholecalciferol (vitamin D3) 125 mcg (5,000 unit) capsule 125 mcg PO DAILY Qty: 30 2RF albuterol sulfate 90 mcg/actuation HFA aerosol inhaler 2 puff inhalation QID (DME) nebulizers Misc See Rx Instructions .ROUTE .MEDSUPPLY Qty: 1 Rx Instructions: As directed fluticasone propionate [Flovent HFA] 110 mcg/actuation HFA aerosol inhaler 2 puff inhalation BID valacyclovir 1 gram tablet 1,000 mg PO DAILY Qty: 30 0RF Rx Instructions: take for 3-5 days for outbreak prn medroxyprogesterone [Provera] 10 mg tablet 10 mg PO DAILY Qty: 10 6RF Rx Instructions: take daily for 10 days at the beginning of each month for 6 month famotidine 20 mg tablet 20 mg PO BID
[2023-02-22 12:52] LABS: IDNOW Serial# 08D9AD1C; Strep A Nucleic Acid Negative (Negative)
[2023-02-22 13:21] LABS: Influenza A PCR NEGATIVE (Negative); Influenza B PCR NEGATIVE (Negative); Resp Syncy Virus RNA Qual PCR NEGATIVE (Negative); SARS COV2 PCR INHOUSE NEGATIVE (Negative)
[2023-02-22 13:37] VITALS: BP 113/58; PULSE 85; RESP 16; TEMP 36.6; O2SAT 97
== END 2023-02-22 15:36 | disposition home or self-care (01) ==
PROVIDERS: Nurse Practitioner Family; Emergency Provider Student in an Organized Health Care Education/Training Program; PCP Internal Medicine
DX: J06.9 Acute upper respiratory infection, unspecified (principal); J02.9 Acute pharyngitis, unspecified; R05.9 Cough, unspecified; Z20.822 Contact with and (suspected) exposure to COVID-19; Z20.828 Contact with and (suspected) exposure to other viral communicable diseases
CPT/HCPCS: 0241U; 87651; 99283

== ENCOUNTER 2023-03-19 11:11 | Outpatient (AMB) | payer MEDICAID, SELFPAY ==
--- NOTE | 2023-03-19 11:15 | MHC.OFFVISWM ---
Intake VS Expanded 03/19/23 11:31 BP 131/73 Blood Pressure Location Rt brachial Blood Pressure Position Sitting Pulse 100 Pulse Source Pulse Oximeter Temp 97.6 F Temperature Source Temporal Artery Scan Pulse Oximetry 97 Oxygen Delivery Method Room Air Height 5 ft 4 in Weight 249 lb 6.4 oz BMI 42.8 Body Fat % 48.6 Body Fat Mass 121.2 Fat Free Mass 128.0 Visceral Fat Rating 13.0 Body Water % 37.0 Body Water Mass 92.2 Muscle Mass/Score 121.6 Basal Metabolic Rate/Score 1,860 Intake Visit Reasons: (OV) F/U SWL + H.Pylori Visitor Information Assistant Required: Yes Visitor Information Assistant Name: office cmi Allergies No Known Allergies Allergy (Verified 03/19/23 11:31) HPI HPI Comments History of Present Illness Details The patient is a pleasant 27 year old female who returns to the clinic for pre-operative surgical weight loss management. They were last seen in the office on 02/21/23, recorded weight at that time was 250.2 pounds, with a BMI of 42.9. Today's weight is 249.4 pounds and BMI is 42.8. There has been a weight loss of 0.8 pounds since initiating the surgical weight loss program on 02/21/23 with a total body weight loss of 0.3 %. Pre op work up completed as follows: SWL classes:? []/8 BH appts: 03/31/23 ? ? RD appts: 03/24/23 Labs: 02/21/23-low D, [id number] H. pylori: 03/19/23 CXR: 02/21/23-nad EK03/24/23-normal ABD U/S: 03/28/23 UGI: 03/28/23 The patient reports she is following the plan but does not like the shakes much and she thinks the bars are too sweet. The patient does not have a body composition scale yet but it arrives on friday. They also have not been communicating weekly. she states she is having coffee w crackers in the morning and 1-2 eggs w salmon. has a shake at 12-1 w 1 scoop 8 oz almond milk has a bar at 1-3 another shake at 3-4 w 2 scoops in 8 oz almond milk meal w salad and salmon 6 forks/6 forks Current meal plan includes: 2 Celebrate Rebuild shakes ([facility] [employer], [employer], [employer]), First shake (1.5 scoops in 15 oz unsweetened almond milk) at 730am-930am, Second shake, (2 scoop in 18 oz unsweetened almond milk) 1030am-1230pm 2 Celebrate protein bar (Celebrate bars at [facility] [employer], [employer], [employer]) First bar at 1230pm-230pm Second bar at 330pm-530pm. Dinner at 630pm (9 forks of protein and 9 forks of salad/vegetables). Drinking 48-64 oz of water, no soda or juice Current exercise plan includes: walking, not tracking calories. [facility] Medical History Morbid obesity Back pain Anxiety Depression GERD (gastroesophageal reflux disease) BMI 39.0-39.9,adult Obesity History of asthma Surgical History Hx of wisdom tooth extraction Hx of cholecystectomy Hx of carpal tunnel repair Hx of emergency section Family History Mother Hypertension Arthritis Asthma Allergy Family/Other Diabetes Hypertension Arthritis Brother No problems noted. Brother Heart problem Brother No problems noted. Sister Asthma Sister Obesity Son Autistic disorder Son Autistic disorder Alcohol intake: never Patient Tobacco Use Status: Never used Tobacco Current occupational status: unemployed Current occupation: right handed Physical Exam Vital Signs: Last Vital Signs Temp 97.6 F 03/19/23 11:31 Pulse 100 03/19/23 11:31 BP 131/73 03/19/23 11:31 Pulse Ox 97 03/19/23 11:31 Oxygen Delivery Method Room Air 03/19/23 11:31 BMI result Body Mass Index 42.8 Const General: healthy appearing and no acute distress Resp Effort & Inspection: normal respiratory effort Auscultation: clear to auscultation bilaterally Cardio Rate: regular rate Rhythm: regular rhythm GI Auscultation: normal bowel sounds Extrem General: Yes normal to inspection Assessment & Plan Assessment & Plan (1) Morbid obesity: Code(s): E66.01 - Morbid (severe) obesity due to excess calories Plan: The patient is not following the meal plan at all. She states that she is walking although not tracking calories. She has not communicated and she just recently bought a body composition scale. She has multiple responsibilities at home and it is unclear whether she will be able to be successful to commit to the program. She was encouraged to read read the e-mail that was sent so she could follow the meal plan appropriately and to communicate with me by text weekly if she is having any problems. Return to clinic in 3-4 weeks. Coding Level of Care Code Est Pt Level 3 (92037) Diagnoses Morbid obesity E66.01
[2023-03-19 11:31] VITALS: BP 131/73; PULSE 100; TEMP 36.4; O2SAT 97; BMI 42.8
== END 2023-03-19 12:05 | disposition home or self-care (01) ==
PROVIDERS: PCP Internal Medicine; Visit Provider Physician Assistant Surgical
DX: E66.01 Morbid (severe) obesity due to excess calories (principal)
CPT/HCPCS: 99213

== ENCOUNTER 2023-03-19 11:11 | Outpatient (REF) | payer MEDICAID, SELFPAY ==
[2023-03-20 10:50] LABS: H Pylori Breath Test Negative (Negative)
== END 2023-03-19 11:12 | disposition home or self-care (01) ==
LOC: HO.LNP 11:11
PROVIDERS: PCP Internal Medicine; Visit Provider Physician Assistant Surgical
DX: E66.01 Morbid (severe) obesity due to excess calories (principal); E53.8 Deficiency of other specified B group vitamins; E55.9 Vitamin D deficiency, unspecified
CPT/HCPCS: 83013; 99211; 99212

== ENCOUNTER 2023-03-31 10:45 | Outpatient (AMB) | payer OTHER, SELFPAY ==
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
== END 2023-03-31 11:45 | disposition home or self-care (01) ==
LOC: HO.HBST 11:12
PROVIDERS: PCP Internal Medicine; Visit Provider Counselor Mental Health
DX: F43.23 Adjustment disorder with mixed anxiety and depressed mood (principal)
CPT/HCPCS: 90837

== ENCOUNTER → 2023-03-31 10:45 | Outpatient (BNVA) | payer MEDICAID, SELFPAY | PROVIDERS: PCP Internal Medicine; Visit Provider Counselor Mental Health ==

== ENCOUNTER 2023-09-12 10:33 | Outpatient (AMB) | payer MEDICAID, SELFPAY ==
--- NOTE | 2023-09-12 10:38 | MHC.OFFVIS ---
Vital Signs 09/12/23 10:49 Height 5 ft 4 in Weight 255 lb BMI 43.8 BP 122/72 Blood Pressure Location Lt brachial Position Sitting Pulse 104 H Intake Visit Reasons: Gastroesophageal reflux disease (GERD) Intake Note: Patient new consult for GERD. Patient cc: N/V, diarrhea and constipation, abdominal pain wit bloating, acid reflex with burning sensation. 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[place]: [facility] Accompanied by: Self / Same As Patient Allergies No Known Allergies Allergy (Verified 09/12/23 10:37) Medication List - Last Reconciled 09/12/23 by Wendy Rebolledo STOREROOM ATTENDANT- albuterol sulfate 90 mcg/actuation 2 puffs inhalation QID fluticasone propionate 110 mcg/actuation (Flovent HFA) 2 puffs inhalation BID medroxyprogesterone (Provera) 10 mg PO DAILY nebulizers As directed omeprazole magnesium (Prilosec OTC) 20 mg PO DAILY valacyclovir 1,000 mg PO DAILY HPI HPI Gastroesophageal reflux disease (GERD): Details: 28-year-old female with past medical history of morbid obesity, depression, anxiety, GERD, hirsutism is here today for initial consultation. Patient was sent to us by her PCP. Patient has been struggling with weight and is in the process of following up with bariatric services at [facility]. Patient reports to have postprandial abdominal bloating, epigastric pain and burning as well as acid reflux. Patient states that she was placed on famotidine and also on omeprazole and reports that she has not seen any help with neither of those medications. Patient reports that she is constipated with no bowel movements for 3-4 days and then she will have diarrhea after eating no metal what. Patient reports that she is dealing with a lot of stress as both of her children were diagnosed with autism. Seven and 5 year old. Patient reports that she is not on any particular diet. Patient does not avoid food that is fried or fast food. Patient admits that she had cholecystectomy in her early 20s. [facility] Medical History Morbid obesity Back pain Anxiety Depression GERD (gastroesophageal reflux disease) BMI 39.0-39.9,adult Obesity History of asthma Surgical History Hx of wisdom tooth extraction Hx of cholecystectomy Hx of carpal tunnel repair Hx of emergency section Family History Mother Hypertension Arthritis Asthma Allergy Family/Other Diabetes Hypertension Arthritis Brother No problems noted. Brother Heart problem Brother No problems noted. Sister Asthma Sister Obesity Son Autistic disorder Son Autistic disorder Social History Alcohol intake: never Patient Tobacco Use Status: Never used Tobacco Current occupational status: unemployed Current occupation: right handed Review of Systems Const Denies weight gain and Denies weight loss ENT Reports no additional complaints, Denies dysphagia and Denies odynophagia Card Reports no additional complaints Resp Reports no additional complaints GI Reports abdominal pain, Denies belching, Denies melena, Reports bloating, Reports constipation, Denies dysphagia, Denies excessive flatus, Reports dyspepsia, Reports heartburn, Denies diarrhea, Reports loose stools, Denies nausea, Denies odynophagia and Denies vomiting Reports no additional complaints Musc Reports no additional complaints Neuro Reports no additional complaints Psych Reports no additional complaints Endo Reports no additional complaints Physical Exam Vital Signs: Last Vital Signs Pulse 104 H 09/12/23 10:49 BP 122/72 09/12/23 10:49 BMI result Body Mass Index 43.8 Const General: healthy appearing, no acute distress and well developed Nutritional Appearance: well nourished Orientation/consciousness: patient oriented x3 Resp Effort & Inspection: normal respiratory effort, able to speak in complete sentences, no tracheal deviation and symmetric chest movement Auscultation: clear to auscultation bilaterally Cardio Rate: regular rate GI Inspection: Yes normal to inspection and No distended Palpation (GI): Soft to palpation, not firm, nontender and No hepatosplenomegaly present Auscultation: normal bowel sounds General: Yes no CVA tenderness Back/Spine/Pelvis Back: no CVA tenderness Skin General skin exam: elasticity normal, turgor normal and dry skin Neuro General: patient oriented x3 Psych Appearance: grossly normal Mental Status: mental status grossly normal Assessment & Plan Assessment & Plan (1) GERD (gastroesophageal reflux disease): Code(s): K21.9 - Gastro-esophageal reflux disease without esophagitis Category: Medical Qualifiers: Esophagitis presence: esophagitis presence not specified Qualified Code(s): K21.9 - Gastro-esophageal reflux disease without esophagitis (2) Postprandial abdominal bloating: Code(s): R14.0 - Abdominal distension (gaseous) (3) Diarrhea: Code(s): R19.7 - Diarrhea, unspecified Qualifiers: Diarrhea type: functional diarrhea Qualified Code(s): K59.1 - Functional diarrhea (4) Constipation: Code(s): K59.00 - Constipation, unspecified Qualifiers: Constipation type: slow transit constipation Qualified Code(s): K59.01 - Slow transit constipation (5) Postprandial epigastric pain: Code(s): R10.13 - Epigastric pain Plan Patient can start taking pantoprazole in the morning. Script for Senokot given to patient. Patient was encouraged to increase fluid intake and activity to promote better bowel motility. Patient was encouraged to avoid dietary triggers. Eat smaller meals and more often. Patient admits to have postprandial abdominal bloating that could be related to her being constipated as well as what she eats. Low FODMAP diet discussed with patient. List of food recommended as well as list of food to avoid given to patient. Will check for H pylori, rule out celiac. Will check thyroid study, vitamin B12, folate, vitamin-D level. Patient was encouraged to avoid food that is spicy, fast food. I will see her in 2 months, sooner on as needed basis. Patient is agreeable to this plan and verbalizes understanding of instructions. She was given the opportunity to ask questions and all questions answered. Thank you for allowing me to participate in her care Orders: Orders H pylori Ag Stool Today K21.9 - Gastro-esophageal reflux disease without esophagitis TSH reflex Free T4 Today K59.00 - Constipation, unspecified Vitamin B12 and Folate Today R19.7 - Diarrhea, unspecified Vitamin D 25-OH (D2 and D3) Today E55.9 - Vitamin D deficiency, unspecified Transglutaminase Ab IgG Today R10.9 - Unspecified abdominal pain Transglutaminase IgA Today R10.9 - Unspecified abdominal pain Liver Panel Today R74.01 - Elevation of levels of liver transaminase levels Medications: New pantoprazole take one tablet half an hour before breakfast 40 mg PO DAILY 90 tabs 2RF K21.9 - Gastro-esophageal reflux disease without esophagitis sennosides (Natural Senna Laxative) 17.2 mg (2 x 8.6 mg) PO BEDTIME 60 tabs 3RF constipation K59.00 - Constipation, unspecified Coding Level of Care Code New Pt Level 4 (05589) Diagnoses Gastroesophageal reflux disease, unspecified whether esophagitis present K21.9 Esophagitis presence: esophagitis presence not specified Postprandial abdominal bloating R14.0 Functional diarrhea K59.1 Diarrhea type: functional diarrhea Slow transit constipation K59.01 Constipation type: slow transit constipation Postprandial epigastric pain R10.13 Time Spent (min) 45 Comment 30 minutes spent with patient and additional 15 minutes spent reviewing her records
[2023-09-12 10:49] VITALS: BP 122/72; PULSE 104; BMI 43.8
== END 2023-09-12 11:52 | disposition home or self-care (01) ==
PROVIDERS: PCP Internal Medicine; Visit Provider Nurse Practitioner Family
DX: K21.9 Gastro-esophageal reflux disease without esophagitis (principal); R14.0 Abdominal distension (gaseous); K59.1 Functional diarrhea; K59.01 Slow transit constipation; R10.13 Epigastric pain
CPT/HCPCS: 99204

== ENCOUNTER → 2023-09-12 10:33 | Outpatient (BNVA) | payer MEDICAID, SELFPAY | PROVIDERS: PCP Internal Medicine; Visit Provider Nurse Practitioner Family | DX: K21.9 Gastro-esophageal reflux disease without esophagitis (principal); K59.01 Slow transit constipation; R14.0 Abdominal distension (gaseous); K59.1 Functional diarrhea; R10.13 Epigastric pain | CPT/HCPCS: 99212 ==

== ENCOUNTER 2023-09-29 10:23 | Outpatient (REF) | payer MEDICAID, SELFPAY ==
[2023-09-29 12:19] LABS: Alanine Aminotransferase 24 U/L (0-31); Albumin Level 4.1 g/dL (3.5-5.0); Alkaline Phosphatase 72 U/L (39-117); Aspartate Amino Transferase 18 U/L (5-31); Bilirubin Direct 0.2 mg/dL (0.0-0.5); Bilirubin Total 0.7 mg/dL (0.0-1.0); Total Protein 7.5 g/dL (6.5-8.0)
[2023-09-29 12:36] LABS: Folate 11.8 ng/mL (> or = 4.0); Vitamin B12 385 pg/mL (200-900)
[2023-09-29 12:39] LABS: TSH reflex Free T4 2.31 uIU/mL (0.32-4.0)
[2023-10-02 14:43] LABS: Transglutaminase Ab IgG <1.0 U/mL; Transglutaminase IgA <1.0 U/mL
[2023-10-04 17:34] LABS: Vitamin D 25-OH, D2 <4 ng/mL; Vitamin D 25-OH, D3 25 ng/mL; Vitamin D 25-OH, Total 25 ng/mL (30-100)
== END 2023-09-29 10:24 | disposition home or self-care (01) ==
LOC: HO.LAB 10:23
PROVIDERS: PCP Internal Medicine; Visit Provider Nurse Practitioner Family
DX: R74.01 Elevation of levels of liver transaminase levels (principal); K59.00 Constipation, unspecified; R19.7 Diarrhea, unspecified; E55.9 Vitamin D deficiency, unspecified; R10.9 Unspecified abdominal pain
CPT/HCPCS: 36415; 80076; 82306; 82607; 82746; 84443; 86364

== ENCOUNTER 2024-04-15 03:07 | Emergency (ER) | payer MEDICAID, SELFPAY ==
--- NOTE | 2024-04-15 | ECG_ITS ---
Test Reason : cp Blood Pressure : / mmHG Vent. Rate : 085 BPM Atrial Rate : 085 BPM P-R Int : 168 ms QRS Dur : 098 ms QT Int : 378 ms P-R-T Axes : 049 030 043 degrees QTc Int : 449 ms Normal sinus rhythm Normal ECG When compared with ECG of 21-FEB-2023 11:43, No significant change was found Referred By: Generic ED Physician Electronically Signed By:CRISTELA ABBASI
[2024-04-15 03:13] VITALS: BP 108/70; PULSE 106; O2SAT 98
[2024-04-15 03:25] VITALS: BP 108/66; PULSE 85; RESP 16; TEMP 37.1; O2SAT 100
--- NOTE | 2024-04-15 03:25 | MHC.EDTECH ---
Patient BIBA,changed into hospital attire,vitals taken,placed pt on the cardiac specialist, EKG taken per order and signed by provider,call stern in reach
[2024-04-15 03:34] VITALS: BP 108/66; PULSE 86; RESP 20; O2SAT 99; BMI 43.0
[2024-04-15 04:00] VITALS: BP 110/77; PULSE 77; RESP 16; TEMP 37; O2SAT 100
--- NOTE | 2024-04-15 04:00 | ED.CHESTPAIN ---
HPI - Chest Pain General Chief Complaint: Chest Pain Stated Complaint: CP & SOB, inhaler & 4 baby asprin given per EMS Time Seen by Provider: 04/15/24 04:00 Source: patient Mode of arrival: ambulatory Limitations: no limitations History of Present Illness ED Provider: HPI narrative: Patient with no known coronary artery disease complaining of chest pain on the mid chest area on the right thigh which increases on palpation sharp in nature subjective shortness breath saturating 100% roomair no leg pain or swelling Related Data Home Medications ?Medication ?Instructions ?Recorded ?Confirmed albuterol sulfate 90 mcg/actuation 2 puff inhalation QID 10/10/20 09/12/23 aerosol inhaler nebulizers #1 ea 10/10/20 10/01/22 fluticasone propionate 110 2 puff inhalation BID 10/01/22 09/12/23 mcg/actuation HFA aerosol inhaler (Flovent HFA) Previous Rx's ?Medication ?Instructions ?Recorded valacyclovir 1 gram tablet 1,000 mg PO DAILY #30 tabs 10/01/22 medroxyprogesterone 10 mg tablet 10 mg PO DAILY #10 tabs 01/01/23 (Provera) pantoprazole 40 mg tablet,delayed 40 mg PO DAILY #90 tabs 09/12/23 release sennosides 8.6 mg tablet (Natural 17.2 mg (2 x 8.6 mg) PO BEDTIME 09/12/23 Senna Laxative) constipation #60 tabs ibuprofen 600 mg tablet 600 mg PO Q6H PRN fever or pain 04/15/24 #30 tabs Allergies Allergy/AdvReac Type Severity Reaction Status Date / Time No Known Allergies Allergy Verified 04/15/24 03:35 Review of Systems Review of Systems: Yes all other systems are reviewed and are negative REPLACED BY [facility] Past Medical History Medical History Morbid obesity Back pain Anxiety Depression GERD (gastroesophageal reflux disease) BMI 39.0-39.9,adult Obesity History of asthma Surgical History Hx of wisdom tooth extraction Hx of cholecystectomy Hx of carpal tunnel repair Hx of emergency section Family History Family History Mother Hypertension Arthritis Asthma Allergy Family/Other Diabetes Hypertension Arthritis Brother No problems noted. Brother Heart problem Brother No problems noted. Sister Asthma Sister Obesity Son Autistic disorder Son Autistic disorder Social History Social History Alcohol intake: never Patient Tobacco Use Status: Never used Tobacco Advance Directives: No Advance Directives Information Provided: Yes Do you have a plan to hurt others: No Plan Current occupational status: unemployed Current occupation: right handed Physical Exam Vital Signs: Vital Signs: Last Vital Signs Temp 97.8 F 04/15/24 05:27 Pulse 81 04/15/24 05:27 Resp 12 04/15/24 05:27 BP 101/63 04/15/24 05:27 Pulse Ox 96 04/15/24 05:27 O2 Del Method Room Air 04/15/24 05:27 BMI result Body Mass Index 43.0 Appearance: Alert. Oriented X3. No acute distress. Eyes: No pallor or icterus ENT: Pharynx normal. Oral Mucosa moist Neck: Normal inspection. Neck supple. CVS: Normal heart rate and rhythm. Pulses normal. Chest wall tenderness right intercostal space Respiratory: No respiratory distress. Equal air entry bilateral, no wheezing/rales/rhonchi Abdomen: Soft and nontender. Bowel sounds are present, no mass palpable, no CVA tenderness Skin: Skin warm and dry. Normal skin color. Normal skin turgor. Extremities: No lower extremity edema. No calf tenderness Neuro: Oriented X 3. No motor deficit. Medications Administered Discontinued Medications Generic Name Dose Route Start Last Admin Trade Name Freq PRN Reason Stop Dose Admin Ibuprofen 600 mg 04/15/24 05:11 04/15/24 05:20 Ibuprofen 600 Mg Tablet PO 04/15/24 05:12 600 mg ONCE ONE Administration Medical Decision Making Medical Decision Making MDM Narrative: Patient has atypical pain tenderness in the right 2nd intercostal space heart score of serum cardiac enzymes negative EKG normal will discharge patient home Lab Data [facility] Lab Attestation statement: I reviewed the patient's lab results. 04/15/24 04:14 04/15/24 04:14 Labs: Lab Results 04/15/24 Range/Units 04:14 WBC 7.3 (4.8-10.8) X10*3/uL RBC 5.10 (4.20-5.50) X10*6/uL Hgb 12.9 (12.0-16.0) g/dl Hct 39.4 (37.0-47.0) % MCV 77.3 L (80.0-98.0) fL MCH 25.3 L (27.0-33.0) pg MCHC 32.7 (31.0-35.0) g/dl RDW 13.5 (11.0-16.0) % Plt Count 202 (160-400) X10*3/uL MPV 11.1 (9.4-12.3) fL Immature Gran % (Auto) 0.3 (0.0-0.4) % Neut % (Auto) 65.0 (45-73) % Lymph % (Auto) 26.2 (20-40) % [place] % (Auto) 6.2 (2-11) % Eos % (Auto) 1.8 (0-4) % Baso % (Auto) 0.5 (0-2) % Lymph # (Auto) 1.9 (1.2-4.9) X10*3/uL [place] # (Auto) 0.5 (0.1-1.2) X10*3/uL Eos # (Auto) 0.1 (0.0-0.4) X10*3/uL Baso # (Auto) 0.0 (0.0-0.2) X10*3/uL Abs Immat Gran (auto) 0.02 (0.00-0.03) X10*3/uL Absolute Neuts (auto) 4.7 (2.0-8.3) x10*3/uL Absolute Nucleated RBC 0.000 (0.0-0.012) X10*3/uL Nucleated RBC % (auto) 0.0 (0.0-0.2) /100WBC Sodium 140 (135-145) mmol/L Potassium 3.5 (3.3-5.1) mmol/L Chloride 109 H (96-108) mmol/L Carbon Dioxide 23 (22-29) mmol/L Anion Gap 12 (12-20) BUN 14 (9-16) mg/dL Creatinine 0.77 (0.5-1.4) mg/dL Estim Creat Clear Calc 127.3 Estimated GFR > 60 Random Glucose 98 (60-115) mg/dL Calcium 9.2 D (8.4-10.2) mg/dL Total Bilirubin 0.6 (0.0-1.0) mg/dL AST 24 (5-31) U/L ALT 27 (0-31) U/L Alkaline Phosphatase 62 (39-117) U/L Troponin I High Sens < 2.7 (<3.5-17.0) ng/L Total Protein 7.5 (6.5-8.0) g/dL Albumin 4.1 (3.5-5.0) g/dL Independent Interpretation I performed an independent interpretation of an: EKG Interpretation: Normal sinus rhythm heart rate 85 beats per minute normal interval normal axis no acute STT wave changes no acute ischemia Discharge Plan Discharge Clinical Impression: Costochondritis Patient Disposition: Home, Self-Care Instructions: Costochondritis (ED) Additional Instructions: Your workup for the chest pain is negative for cardiac event Chest pain is from Likely inflammation of the cartilage Ibuprofen for pain Prescriptions: New ibuprofen 600 mg tablet 600 mg PO Q6H PRN (Reason: fever or pain) Qty: 30 0RF No Action albuterol sulfate 90 mcg/actuation HFA aerosol inhaler 2 puff inhalation QID (DME) nebulizers Misc See Rx Instructions .ROUTE .MEDSUPPLY Qty: 1 Rx Instructions: As directed fluticasone propionate [Flovent HFA] 110 mcg/actuation HFA aerosol inhaler 2 puff inhalation BID valacyclovir 1 gram tablet 1,000 mg PO DAILY Qty: 30 0RF Rx Instructions: take for 3-5 days for outbreak prn medroxyprogesterone [Provera] 10 mg tablet 10 mg PO DAILY Qty: 10 6RF Rx Instructions: take daily for 10 days at the beginning of each month for 6 month pantoprazole 40 mg tablet,delayed release (DR/EC) 40 mg PO DAILY Qty: 90 2RF Rx Instructions: take one tablet half an hour before breakfast sennosides [Natural Senna Laxative] 8.6 mg tablet 17.2 mg PO BEDTIME Qty: 60 3RF Interventions: ED Discharge Assessment Last Done: 04/15/24 05:27 Discharge Date/Time: 04/15/24 05:32 Print Language: Urdu
[2024-04-15 04:18] LABS: Basophils Percent Auto 0.5 % (0-2); Eosinophils Absolute Auto 0.1 X10*3/uL (0.0-0.4); Eosinophils Percent Auto 1.8 % (0-4); Hematocrit 39.4 % (37.0-47.0); Hemoglobin 12.9 g/dl (12.0-16.0); Imm Gran Abs Auto 0.02 X10*3/uL (0.00-0.03); Imm Gran Pct Auto 0.3 % (0.0-0.4); Lymphocytes Absolute Auto 1.9 X10*3/uL (1.2-4.9); Lymphocytes Percent Auto 26.2 % (20-40); MANUAL DIFF FLAG NO; Mean Corpuscular HGB Conc 32.7 g/dl (31.0-35.0); Mean Corpuscular Hemoglobin 25.3 pg (27.0-33.0); Mean Corpuscular Volume 77.3 fL (80.0-98.0); Mean Platelet Volume 11.1 fL (9.4-12.3); Monocytes Absolute Auto 0.5 X10*3/uL (0.1-1.2); Monocytes Percent Auto 6.2 % (2-11); Neutrophils Absolute Auto 4.7 x10*3/uL (2.0-8.3); Platelet Count 202 X10*3/uL (160-400); Red Cell Distribution Width 13.5 % (11.0-16.0); White Blood Count 7.3 X10*3/uL (4.8-10.8)
[2024-04-15 04:34] LABS: Albumin Level 4.1 g/dL (3.5-5.0); Alkaline Phosphatase 62 U/L (39-117); Anion Gap 12 (12-20); Aspartate Amino Transferase 24 U/L (5-31); Bilirubin Total 0.6 mg/dL (0.0-1.0); Blood Urea Nitrogen 14 mg/dL (9-16); Calcium 9.2 mg/dL (8.4-10.2); Carbon Dioxide 23 mmol/L (22-29); Chloride 109 mmol/L (96-108); Creatinine Clr Calc Pharmacy 127.3; Estimated Glomerular Filt Rate > 60; Glucose Random 98 mg/dL (60-115); Potassium 3.5 mmol/L (3.3-5.1); Sodium 140 mmol/L (135-145); Total Protein 7.5 g/dL (6.5-8.0)
[2024-04-15 04:44] LABS: Troponin-I High Sensitivity < 2.7 ng/L (<3.5-17.0)
[2024-04-15 04:59] LABS: Alanine Aminotransferase 27 U/L (0-31)
[2024-04-15] MEDS: Ibuprofen 600 MG TABLET PO (05:20)
[2024-04-15 05:22] VITALS: BP 101/63; PULSE 81; RESP 12; TEMP 36.6; O2SAT 96
[2024-04-15 05:27] VITALS: BP 101/63; PULSE 81; RESP 12; TEMP 36.6; O2SAT 96
== END 2024-04-15 05:32 | disposition home or self-care (01) ==
PROVIDERS: Emergency Provider Internal Medicine
DX: M94.0 Chondrocostal junction syndrome [Tietze] (principal); R06.02 Shortness of breath; E66.9 Obesity, unspecified; Z68.41 Body mass index [BMI] 40.0-44.9, adult
CPT/HCPCS: 36415; 80053; 84484; 85025; 93005; 99283; 99284

== ENCOUNTER → 2024-04-15 03:13 | Outpatient (BNV) | payer MEDICAID, SELFPAY | PROVIDERS: Emergency Provider Internal Medicine; Visit Provider Internal Medicine | DX: R07.9 Chest pain, unspecified (principal) | CPT/HCPCS: 93010 ==

== ENCOUNTER 2024-12-08 13:01 | Outpatient (REF) | payer MEDICAID, SELFPAY ==
--- OUTSIDE RECORDS SUMMARY | 2024-12-08 13:33 | XMS_ITS | Encounter Summary ---
Author Organization [employer] Address [address] [place] [address] Care Team Providers Care Personal Development Educator Name Role Phone Ara Pittman MD Primary Care Provide r Reason for Visit * Reason Onset Date Comments Appointment Request 03/19/2023 Encounter Details Date Type Department Care Team ([facility] Contact Info) Description 03/19/2023 Telephone [facility] [address] [place] [address] Ara Pittman MD [address] [place] [address] Appointment Request Social History Tobacco Use Types Packs/Day Years Used Date Smoking Tobacco: Never Passive Smoke Exposure: Never Smokeless Tobacco: Never Alcohol Use Standard Drinks/Week Comments Never 0 (1 standard drink = 0.6 oz pur e alcohol) Depression Answer Date Recorded Patient Health Questionnaire-9 Score 5 07/08/2022 Housing Stability Answer Date Recorded What is your housing situation today? I have niki [place] 02/02/[address] you li ve. Do you have problems with any of the following? Pests such as bugs, ants, or mice 02/02/2023 Food Insecurity Answer Date Recorded Within the past 12 months, y ou worried that your food would run out before you got money to buy more: Sometimes True 2022 Within the past 12 months,th e food you bought just didn't last and you didn't have enough money to get more: Sometimes True 02/21/2023 Transportation Answer Date Recorded In the past 12 months, has l ack of transportation kept you from medical appts, meetings, work or from getting things needed for daily living? Yes, it has kept me from non-medical meetings, work, or getting things that I need 02/02/2023 Utilities Answer Date Recorded In the past 12 months, has t he electric, gas, oil or water company threatened to shut off services in your home? No 02/21/2023 Depression Answer Date Recorded Patient Health Questionnaire-2 Score 2 07/08/2022 Comments Unknown Sex and Gender Information Value Date Recorded Sex Assigned at Female 02/25/2022 10:34 AM EDT Legal Sex Female 10:34 AM EDT Gender Identity Female 02/25/2022 10:34 AM EDT Sexual Orientation Straight 02/25/2022 10 :34 AM EDT documented as of this encounter Miscellaneous Notes * Telephone Encounter - Lenore Pretty - 03/19/2023 12:11 PM EST Tc from pt requesting PCP appt to discuss weight management. documented in this encounter Plan of Treatment Upcoming Encounters Date Type Department Care Team (Late st Contact Info) Description 12/13/2024 2:30 PM EDT Office Visit [facility] [address] [place] [address] Ara Pittman MD [address] [place] [address] documented as of this encounter Visit Diagnoses Not on filedocumented in this encounter Additional Health Concerns Assessment Noted Time PHQ-9 Depression Total Score: 5 07/09/19 23 1:12 PM EDT documented as of this encounter Care Teams Personal Development Educator Relationship Specialty Start Date End Date Ara Pittman MD [address] [place] [address] PCP - General Family Medicine 09/09/18 Sandy Gill Sheet FinisherEntomology Professor 04/16/24 documented as of this encounter
[2024-12-08 17:16] LABS: Alanine Aminotransferase 51 U/L (0-31); Albumin Level 4.5 g/dL (3.5-5.0); Alkaline Phosphatase 60 U/L (39-117); Anion Gap 12 (12-20); Aspartate Amino Transferase 32 U/L (5-31); Blood Urea Nitrogen 14 mg/dL (9-16); Calcium 9.2 mg/dL (8.4-10.2); Carbon Dioxide 25 mmol/L (22-29); Chloride 106 mmol/L (96-108); Cholesterol 142 mg/dL (<200); Estimated Glomerular Filt Rate > 60; HDL Cholesterol 36 mg/dL (>40); Potassium 4.0 mmol/L (3.3-5.1); Sodium 139 mmol/L (135-145); Total Protein 7.5 g/dL (6.5-8.0); Triglycerides 138 mg/dL (<150)
[2024-12-08 17:22] LABS: Free T4 (Free Thyroxine) 0.99 ng/dL (0.71-1.85); Thyroid Stimulating Hormone 1.75 uIU/mL (0.32-4.0)
== END 2024-12-08 13:02 | disposition home or self-care (01) ==
LOC: HO.HHCL 13:01
PROVIDERS: Visit Provider Registered Nurse Psychiatric/Mental Health
DX: Z79.899 Other long term (current) drug therapy (principal)
CPT/HCPCS: 36415; 80053; 80061; 82248; 84439; 84443

== ENCOUNTER 2024-12-28 11:04 | Outpatient (AMB) | payer MEDICAID, SELFPAY ==
--- NOTE | 2024-12-28 11:09 | A.OFFVIS_ITS ---
Vital Signs 12/28/24 11:11 Height 5 ft 3 in Weight 214 lb BMI 37.9 BP 108/70 Blood Pressure Location Lt brachial Position Sitting Pulse 80 Pulse Source Pulse Oximeter Pulse Oximetry (%) 100 Oxygen Delivery Method Room Air Intake Visit Reasons: Constipatin/Gerd, last seen 09/09/23 Intake Note: Est pt for mgmt of constipation. CC; C.O. abd pain (epigastric), GERD persistence, SOB, constipation and diarrhea intermittently. Pt states that some of her sx are diet related however not all of them she believes. Pt just recently stopped, GLP 1 therapy per side effects. Die Repairer Forging Required: Yes Die Repairer Forging Services: Die Repairer Forging Present Die Repairer Forging Name: [id number] Rajat SUN Information Interpreted: clinical only Accompanied by: Self / Same As Patient Allergies No Known Allergies Allergy (Verified 12/28/24 11:09) HPI HPI Constipatin/Gerd, last seen 09/09/23: Details: LAST VISIT: GERD (gastroesophageal reflux disease) Postprandial abdominal bloating Diarrhea Constipation Postprandial epigastric pain Plan Patient can start taking pantoprazole in the morning. Script for Senokot given to patient. Patient was encouraged to increase fluid intake and activity to promote better bowel motility. Patient was encouraged to avoid dietary triggers. Eat smaller meals and more often. Patient admits to have postprandial abdominal bloating that could be related to her being constipated as well as what she eats. Low FODMAP diet discussed with patient. List of food recommended as well as list of food to avoid given to patient. Will check for H pylori, rule out celiac. Will check thyroid study, vitamin B12, folate, vitamin-D level. Patient was encouraged to avoid food that is spicy, fast food. I will see her in 2 months, sooner on as needed basis. Patient is agreeable to this plan and verbalizes understanding of instructions. She was given the opportunity to ask questions and all questions answered. ? Thank you for allowing me to participate in her care Orders H pylori Ag Stool Today K21.9 TSH reflex Free T4 Today K59.00 Vitamin B12 and Folate Today R19.7 Vitamin D 25-OH (D2 and D3) Today E55.9 Transglutaminase Ab IgG Today R10.9 Transglutaminase IgA Today R10.9 Liver Panel Today R74.01 New pantoprazole take one tablet half an hour before breakfast 40 mg PO DAILY 90 tabs 2RF K21.9 sennosides (Natural Senna Laxative) 17.2 mg (2 x 8.6 mg) PO BEDTIME 60 tabs 3RF constipation K59.00 TODAY'S VISIT Patient is here today for requested visit. Last seen in August of 2023. Patient reports that she was unable to follow-up, very busy with her children's who are autistic. Patient reports she continues to have acid reflux, epigastric pain postprandially and abdominal bloating. Unable to move her bowels well. Patient was taking pantoprazole, however was switched to omeprazole by her PCP. Patient reports medication is not working. Patient was placed on couple different GLP1 for weight loss, however she was feeling dizzy and had palpitations and stop the medication. Last dose was about a week ago or so. Patient reports that she is not moving her bowels well unless she takes senna. Currently she is taking 1 ta blet daily. Two tablets was causing diarrhea. Patient reports occasional dyspepsia without dysphagia or odynophagia. Denies melena, hematochezia, unintentional weight loss or ribbon like stools. [facility] Medical History Morbid obesity Back pain Anxiety Depression GERD (gastroesophageal reflux disease) BMI 39.0-39.9,adult Obesity History of asthma Surgical History Hx of wisdom tooth extraction Hx of cholecystectomy Hx of carpal tunnel repair Hx of emergency section Family History Mother Hypertension Arthritis Asthma Allergy Family/Other Diabetes Hypertension Arthritis Brother No problems noted. Brother Heart problem Brother No problems noted. Sister Asthma Sister Obesity Son Autistic disorder Son Autistic disorder Social History Alcohol intake: never Patient Tobacco Use Status: Never used Tobacco Current occupational status: unemployed Current occupation: right handed Review of Systems Const Denies weight gain and Denies weight loss ENT Reports no additional complaints, Denies dysphagia and Denies odynophagia Card Reports no additional complaints Resp Reports no additional complaints GI Reports abdominal pain (Epigastric), Denies belching, Denies melena, Reports bloating, Denies change in bowel habits, Reports constipation, Denies dysphagia, Denies excessive flatus, Reports dyspepsia, Reports heartburn, Denies diarrhea, Denies loose stools, Denies nausea, Denies odynophagia and Denies vomiting Reports no additional complaints Musc Reports no additional complaints Neuro Reports no additional complaints Psych Reports no additional complaints Endo Reports no additional complaints Physical Exam Vital Signs: Last Vital Signs Pulse 80 12/28/24 11:11 BP 108/70 12/28/24 11:11 Pulse Ox 100 12/28/24 11:11 Oxygen Delivery Method Room Air 12/28/24 11:11 BMI result Body Mass Index 37.9 Const General: healthy appearing, no acute distress and well developed Nutritional Appearance: well nourished Orientation/consciousness: patient oriented x3 Resp Effort & Inspection: normal respiratory effort, able to speak in complete sentences, no tracheal deviation and symmetric chest movement Auscultation: clear to auscultation bilaterally Cardio Rate: regular rate GI Inspection: Yes normal to inspection and No distended Palpation (GI): Soft to palpation, not firm, nontender and No hepatosplenomegaly present Auscultation: normal bowel sounds General: Yes no CVA tenderness Back/Spine/Pelvis Back: no CVA tenderness Skin General skin exam: elasticity normal, turgor normal and dry skin Neuro General: patient oriented x3 Psych Appearance: grossly normal Mental Status: mental status grossly normal Results Reviewed Results Reviewed: Laboratory Tests 09/29/23 04/15/24 12/08/24 10:47 04:14 13:21 AST 18 24 32 H ALT 24 27 51 H Vitamin B12 385 25-OH Vitamin D Total 25 L Folate 11.8 TSH 2.31 Tiss Transglutamin IgG <1.0 Tiss Transglutamin IgA <1.0 Assessment & Plan Assessment & Plan (1) GERD (gastroesophageal reflux disease): Code(s): K21.9 - Gastro-esophageal reflux disease without esophagitis Category: Medical Qualifiers: Esophagitis presence: esophagitis presence not specified Qualified Code(s): K21.9 - Gastro-esophageal reflux disease without esophagitis (2) Postprandial epigastric pain: Code(s): R10.13 - Epigastric pain (3) Postprandial abdominal bloating: Code(s): R14.0 - Abdominal distension (gaseous) (4) Constipation: Code(s): K59.00 - Constipation, unspecified Qualifiers: Constipation type: slow transit constipation Qualified Code(s): K59.01 - Slow transit constipation Plan Patient will stop omeprazole and will start taking Nexium in the morning. Avoid dietary triggers a late night snacking. Staying upright for minimum 3 hours after meals discussed with patient. Patient will continue taking senna. Increase fluid intake and activity to promote better bowel motility. Low FODMAP diet discussed with patient. List of food recommended as were list of food to avoid given to patient. In September of 2023 patient had lab work that ruled out celiac. Patient had normal liver enzymes then, however recent enzymes are elevated. Discussed with patient low fat, low carb, low-salt and high-protein diet. Weight loss and exercise recommended. Patient will follow-up in 2-3 months, sooner on as needed basis. She is agreeable to this plan and verbalizes understanding of instructions. She was given the opportunity to ask questions and all questions answered. Thank you for allowing me to participate in her care Medications: New esomeprazole magnesium (Nexium) 40 mg PO DAILY 30 caps 3RF K21.9 - Gastro- esophageal reflux disease without esophagitis Refilled sennosides (Natural Senna Laxative) 17.2 mg (2 x 8.6 mg) PO BEDTIME 60 tabs 3RF constipation K59.00 - Constipation, unspecified Discontinued pantoprazole Discontinued Reason: Doctor's Order 40 mg PO QAM 90 tabs 2RF K21.9 - Gastr o-esophageal reflux disease without esophagitis Coding Level of Care Code Est Pt Level 3 (42905) Diagnoses Gastroesophageal reflux disease, unspecified whether esophagitis present K21.9 Esophagitis presence: esophagitis presence not specified Postprandial epigastric pain R10.13 Postprandial abdominal bloating R14.0 Slow transit constipation K59.01 Constipation type: slow transit constipation Time Spent (min) 30 Comment 20 minutes spent with patient and additional 10 minutes spent reviewing her records
[2024-12-28 11:11] VITALS: BP 108/70; PULSE 80; O2SAT 100; BMI 37.9
--- OUTSIDE RECORDS SUMMARY | 2024-12-28 12:41 | XMS_ITS | Encounter Summary ---
Author Organization [employer] Address [address] [place] [address] Care Team Providers Care Supervisor Finishing Name Role Phone Ara Pittman MD Primary Care Provide r Reason for Visit * Reason Comments Med Refill Encounter Details Date Type Department Care Team ([facility] st Contact Info) Description 12/27/2024 Refill [facility] [address] [place] [address] Chioma Tran MD [address] [place] [address] Seasonal allergies Social History Tobacco Use Types Packs/Day Years Used Date Smoking Tobacco: Never Passive Smoke Exposure: Never Smokeless Tobacco: Never Alcohol Use Standard Drinks/Week Comments Never 0 (1 standard drink = 0.6 oz pur e alcohol) Depression Answer Date Recorded Patient Health Questionnaire-9 Score 0 09/09/2024 Patient Health Questionnaire-9 Score 0 09/09/2024 Last PHQ-9: Questionnaire Data Not on file 0 09/09/2024 Housing Stability Answer Date Recorded What is your housing situation today? I have niki cl 09/09/[address] you li ve. Do you have problems with any of the following? None of the above 09/09/2024 Food Insecurity Answer Date Recorded Within the past 12 months, y ou worried that your food would run out before you got money to buy more: Never True 09/09/2024 Within the past 12 months,th e food you bought just didn't last and you didn't have enough money to get more: Never True Transportation Answer Date Recorded In the past 12 months, has l ack of transportation kept you from medical appts, meetings, work or from getting things needed for daily living? No 09/09/2024 Utilities Answer Date Recorded In the past 12 months, has t he electric, gas, oil or water company threatened to shut off services in your home? No 09/09/2024 Depression Answer Date Recorded Patient Health Questionnaire-2 Score 0 09/09/2024 Internet Access Answer Date Recorded Internet Access Q1 Yes 09/09/2024 Internet Access Q2 Not on file 09/09/2024 Comments No Sex and Gender Information Value Date Recorded Sex Assigned at Female 02/25/2022 10:34 AM EDT Legal Sex Female 10:34 AM EDT Gender Identity Female 02/25/2022 10:34 AM EDT Sexual Orientation Straight 02/25/2022 10 :34 AM EDT documented as of this encounter Plan of Treatment Not on file documented as of this encounter Visit Diagnoses Diagnosis Seasonal allergies Allergic rhinitis, cause unspecified documented in this encounter Additional Health Concerns Assessment Noted Time PHQ-9 Depression Total Score: 0 09/10/19 25 10:53 AM EDT documented as of this encounter Care Teams Supervisor Finishing Relationship Specialty Start Date End Date Ara Pittman MD [address] [place] [address] PCP - General Family Medicine 09/09/18 Sandy Gill Biophysics ProfessorRadar Repairer 04/16/24 documented as of this encounter
--- OUTSIDE RECORDS SUMMARY | 2024-12-28 12:41 | XMS_ITS | Encounter Summary ---
Author Organization [employer] Address [address] [place] [address] Care Team Providers Care Power Barker Operator Name Role Phone Ara Pittman MD Primary Care Provide r Encounter Details Date Type Department Care Team ([facility] st Contact Info) Description 03/09/2024 Orders Only [facility] [address] [place] [address] Bridger Harper MD [address] [place] [address] Social History Tobacco Use Types Packs/Day Years Used Date Smoking Tobacco: Never Passive Smoke Exposure: Never Smokeless Tobacco: Never Alcohol Use Standard Drinks/Week Comments Never 0 (1 standard drink = 0.6 oz pur e alcohol) Depression Answer Date Recorded Patient Health Questionnaire-9 Score 0 07/14/2023 Patient Health Questionnaire-9 Score 0 07/14/2023 Last PHQ-9: Questionnaire Data Not on file 0 07/14/2023 Housing Stability Answer Date Recorded What is [...] getting things needed for daily living? No 07/04/2023 Utilities Answer Date Recorded In the past 12 months, has t he electric, gas, oil or water company threatened to shut off services in your home? No 02/21/2023 Depression Answer Date Recorded Patient Health Questionnaire-2 Score 0 07/14/2023 Comments Unknown Sex and Gender Information Value [...] Noted Time PHQ-9 Depression Total Score: 0 07/14/19 11:00 AM EDT documented as of this encounter Care Teams Power Barker Operator Relationship Specialty Start Date End Date Ara Pittman MD [address] [place] [address] PCP - General Family Medicine 09/09/18 Sandy Gill NewsagentPetroleum Blending Plant Operator 04/16/24 documented as of this encounter
--- OUTSIDE RECORDS SUMMARY | 2024-12-28 12:41 | XMS_ITS | Encounter Summary ---
Author Organization [employer] Address [address] [address] [place] [address] Care Team Providers Care Public Welfare Worker Name Role Phone Ara Pittman MD Primary Care Provide r Reason for Visit * Reason Comments Med Refill Encounter Details Date Type Department Care Team ([facility] st Contact Info) Description 01/11/2024 Refill [facility] [address] [place] [address] Ara Pittman MD [address] [place] [address] Moderate persistent asthma, unspecified whether complicated Social History Tobacco Use Types Packs/Day Years [...] as of this encounter Visit Diagnoses Diagnosis Moderate persistent asthma, unspecified whether complicated documented in this encounter Additional Health Concerns Assessment Noted Time PHQ-9 Depression Total Score: 0 07/14/19 11:00 AM EDT documented as of this encounter Care Teams Public Welfare Worker Relationship Specialty Start Date End Date Ara Pittman MD [address] [place] [id number] PCP - General Family Medicine 09/09/18 Sandy Gill Automatic Dispenser MechanicFinancial Reporting Analyst 04/16/24 documented as of this encounter
--- OUTSIDE RECORDS SUMMARY | 2024-12-28 12:41 | XMS_ITS | Encounter Summary ---
Author Organization [employer] Address [address] [facility] [address] [place] [address] Care Team Providers Care Geospatial Intelligence Analyst Name Role Phone Ara Pittman MD Primary Care Provide r Reason for Visit * Reason Onset Date Comments Appointment Request 06/07/2022 Encounter Details Date Type Department Care Team ([facility] st Contact Info) Description 06/07/2022 Telephone [facility] [address] [place] [address] Ara Pittman MD [address] [place] [address] Appointment Request Social History Tobacco Use Types Packs/Day Years Used Date Smoking Tobacco: Never Assessed Comments Unknown Sex and Gender Information Value Date Recorded Sex Assigned at Female 02/25/2022 10:34 AM EDT Legal Sex Female 10:34 AM EDT Gender Identity Female 02/25/2022 10:34 AM EDT Sexual Orientation Straight 02/25/2022 10 :34 AM EDT documented as of this encounter Miscellaneous Notes * Telephone Encounter - Belkys Gonzalez - 06/07/2022 10:24 AM EST Tc from pt requesting a PE appt and also to get her TB shot . States needs for work . documented in this encounter Plan of Treatment Not on file documented as of this encounter Visit Diagnoses Not on filedocumented in this encounter Care Teams Geospatial Intelligence Analyst Relationship Specialty Start Date End Date Ara Pittman MD [address] [place] [address] PCP - General Family Medicine 09/09/18 Sandy Gill Nail StickerFood And Beverage Service Manager 04/16/24 documented as of this encounter
--- OUTSIDE RECORDS SUMMARY | 2024-12-28 12:41 | XMS_ITS | Clinical Summary ---
Author Organization [employer] Address [address] [facility] [address] [place] [address] Care Team Providers Care Windows Systems Administrator Name Role Phone Ara Pittman MD Primary Care Provide r Allergies No known active allergies Medications * This document contains information received from the source organization and may not represent a complete record from that organization. Acetaminophen 500 MG capsule Take 2 capsules by mouth every 6 (six) hours. Active cyclobenzaprine (Flexeril) 5 MG tablet Take 1 tablet by mouth every 8 (eight) hours. Active ergocalciferol (Vitamin D-2) 1.25 MG (49921 UT) capsule take 1 capsule by oral route every week Active gabapentin (Neurontin) 100 MG capsule Take 1 capsule by mouth every 12 (twelve) hours. Active ibuprofen 800 MG tablet TAKE 1 TABLET BY MOUTH THREE TIMES DAILY WITH FOOD Active loratadine (Claritin) 10 MG tablet Take 1 tablet by mouth at bed time. Active montelukast (Singulair) 10 MG tablet Take 1 tablet by mouth at bed time. Active psyllium (Metamucil) 0.52 g capsule take one daily Active sodium chloride ([place]) 0.65 % nasal spray 1-2 sprays on each nostril every 2-3 hours as needed for nasal congestion Active tretinoin (Retin-A) 0.1 % cream apply by topical route every day to the affected area(s) Active valACYclovir (Valtrex) 1 g tablet Take 2 tablets by mouth every 12 (twelve) hours. Active cholecalciferol (Vitamin D-3) 25 MCG (1000 UT) capsuleIndicatio ns:Vitamin D insufficiency take 1 Capsule by Oral route every day 90 capsule Active famotidine (Pepcid) 20 MG tabletIndication s:Heartburn Take 1 tablet (20 mg) by mouth 2 times daily. 60 tablet 11 023 Active Additional Information Patient not taking.Reported on 04/25/2023 fluticasone (Flovent HFA) 110 MCG/ACT inhalerIndicatio ns:Moderate persistent asthma, unspecified whether complicated INHALE 2 PUFFS BY MOUTH TWICE DAILY RINSE MOUTH AFTER USING. 36 g 023 Active ibuprofen 400 MG tablet Take 1 tablet (400 mg) by mouth every 6 (six) hours if needed for moderate pain or fever for up to 30 doses. 30 tablet 023 Active fluticasone (Flonase Allergy Relief) 50 MCG/ACT nasal spray Administer 2 sprays into each nostril in the morning. 16 g 023 Active Spacer/Aero-Hold ing Chambers (OptiChamber Florinda) misc 1 each every 4 (four) hours if needed (asthma). 1 each Active Menthol (Cepacol Sore Throat) 5.4 MG lozenge Dissolve 1 tablet in the mouth every 2 (two) hours if needed (sore throat). 20 lozenge 023 Active ondansetron (Zofran) 4 MG tablet take 2 tablet by oral route 3-4 times every day prn nausea 12 tablet 023 Active famotidine (Pepcid) 20 MG tablet Take 1 tablet (20 mg) by mouth in the morning. 30 tablet 023 Active famotidine (Pepcid) 20 MG tabletIndication s:Viral syndrome Take 1 tablet (20 mg) by mouth 2 times daily. 60 tablet 11 024 Active medroxyPROGESTER one (Provera) 10 MG tabletIndication s:Irregular periods Take 1 tablet (10 mg) by mouth in the morning. 10 tablet 1 024 Active spironolactone (Aldactone) 100 MG tabletIndication s:Primary hypertension TAKE 1 TABLET BY MOUTH DAILY IN THE MORNING 90 tablet 1 024 Active omeprazole (PriLOSEC) [address] capsuleIndicatio ns:Gastroesophag eal reflux disease, unspecified whether esophagitis present Take 1 capsule (40 mg) by mouth before breakfast and before evening meal. Do not crush or chew. 60 capsule 11 024 2024 Active acetaminophen (Tylenol) 500 MG tablet Take 2 tablets (1,000 mg) by mouth every 6 (six) hours if needed for moderate pain or fever for up to 25 doses. 30 tablet 024 Active ibuprofen 400 MG tablet Take 1 tablet (400 mg) by mouth every 6 (six) hours if needed for moderate pain, fever or headaches. 30 tablet 024 Active drospirenone-eth inyl estradiol (Kenia, Gianvi) 3-0.02 MG tabletIndication s:Acne, unspecified acne type TAKE 1 TABLET BY MOUTH EVERY DAY IN THE MORNING 84 tablet 2 025 Active sennosides (Senokot) 8.6 MG tabletIndication s:Constipation, unspecified constipation type Take 1 tablet (8.6 mg) by mouth Once per day. 30 tablet 11 025 2025 Active cetirizine (ZyrTEC) 10 MG tabletIndication s:Seasonal allergies Take 1 tablet (10 mg) by mouth if needed each day for allergies. 30 tablet 2 025 Active Ketotifen Fumarate 0.035 % solutionIndicati ons:Seasonal allergies Administer 1 drop into affected eye(s) if needed in the morning and at bedtime (allergies). 10 mL 3 025 Active fluticasone (Flonase) 50 MCG/ACT nasal sprayIndications :Seasonal allergies Use 1 spray each nostril daily. Shake gently. Before first use, prime pump. After use, clean tip and replace cap. 16 g 2 025 Active sodium chloride ([place]) 0.65 % nasal sprayIndications :Acute URI Administer 1 spray into each nostril if needed for congestion. 15 mL 11 025 2025 Active albuterol (Ventolin HFA) 108 (90 Base) MCG/ACT inhalerIndicatio ns:Moderate persistent asthma, unspecified whether complicated INHALE 2 PUFFS BY MOUTH EVERY 4 HOURS NEEDED FOR WHEEZING OR SHORTNESS OF BREATH 18 g 2 025 Active fluticasone furoate (Arnuity Ellipta) 100 MCG/ACT inhalerIndicatio ns:Moderate persistent asthma, unspecified whether complicated Inhale 1 puff Once per day. Rinse mouth with water after use to reduce aftertaste and incidence of candidiasis. Do not swallow. 1 each 025 2025 Active Tirzepatide-Weig ht Management (Zepbound) 2.5 MG/0.5ML solution auto-injectorInd ications:Class 2 severe obesity due to excess calories with serious comorbidity and body mass index (BMI) of 39.0 to 39.9 in adult ([facility]) Inject 0.5 mL (2.5 mg) under the skin 1 (one) time per week. 2 mL 2 Active albuterol (Ventolin HFA) 108 (90 Base) MCG/ACT inhalerIndicatio ns:Moderate persistent asthma, unspecified whether complicated INHALE 2 PUFFS BY MOUTH EVERY 4 HOURS NEEDED FOR WHEEZING OR SHORTNESS OF BREATH 18 g 2 025 2024 Discontinued(R eorder (will not trigger notification to Pharmacy)) Tirzepatide-Weig ht Management (Zepbound) 2.5 MG/0.5ML solution auto-injector Inject 0.5 mL (2.5 mg) under the skin 1 (one) time per week. 2 mL 2 025 2024 Discontinued(R eorder (will not trigger notification to Pharmacy)) Active Problems Problem Noted Date Diagnosed Date Class 2 severe obesity due t o excess calories with serious comorbidity and body mass index (BMI) of 39.0 to 39.9 in adult 12/13/2024 Assessment & Plan (12/13/2024 4:02 PM EDT): Extensive counseling about healthy diet and exercise on today Continue with Zepbound 2.5 mg weekly Constipation 09/09/2024 Functional diarrhea 09/09/2024 Blurry vision, bilateral 04/07/2024 Strep throat 02/18/2024 Assessment & Plan (02/27/2024 6:21 PM EDT): Rx for pcn sent Take medications as prescribed , complete course even if feeling better Reviewed transmission Body aches 02/18/2024 GERD (gastroesophageal reflux disease) Assessment & Plan (07/14/2023 5:20 PM EDT): I advise patient to avoid NSAIDs, spicy and acid food, I advise to eat at the same time every day, I advise to elevate the head of the bed and take medications as prescribe Complaints of learning difficulties 04/29/2023 Assessment & Plan (04/29/2023 3:37 PM EST): Continue to follow with specialists I will call to ask what can be done but I did not promise I can do this letter Acute otitis media 04/29/2023 Assessment & Plan (04/29/2023 3:36 PM EST): Complete treatment with Augmentin Ibuprofen PRN for pain Viral syndrome 04/29/2023 Other acute sinusitis 04/26/2023 Assessment & Plan (04/26/2023 2:53 PM EST): Pt w acute sinusitis and otitis media -amoxicillin BID x 7 days,flonase ,cepacol -alarm sings and symptoms explained -famotidine ,zofran for epigasric pain and nausea -hydration UTI symptoms 12/06/2022 Assessment & Plan (12/06/2022 4:21 PM EDT): Drink plenty of water Do not hold urine Class 3 severe obesity due t o excess calories without serious comorbidity with body mass index (BMI) of 40.0 to 44.9 in adult 09/24/2022 Assessment & Plan (09/09/2024 2:10 PM EDT): Extensive counseling about healthy diet and exercise on today I went down on Zepbound from 5 mg back to 2.5 mg patient is awaiting for medication to be ready for her Assessment & Plan (07/15/2024 12:14 PM EDT): Counseling about healthy diet and exercise on today I will go up on her Zepbound to 5 mg weekly Assessment & Plan (01/19/2024 1:22 PM EDT): Today extensive discussion was done about life style modifications I advise healthy diet (low calorie) and cardiovascular exercise In light of multiple failure with diet and exercise alone I will prescribed for patient nilda Assessment & Plan (04/29/2023 3:40 PM EST): Today extensive discussion was done about life style modifications I advise healthy diet (low calorie) and cardiovascular exercise Assessment & Plan (09/24/2022 1:40 PM EDT): Extensive counseling done Heartburn 09/24/2022 Acne 07/10/2022 Assessment & Plan (12/06/2022 4:20 PM EDT): Dermatology referral information provided Assessment & Plan (07/10/2022 9:25 AM EDT): With scarring on cheeks, not many active nodules Trial Kenia with obesity and irregular periods as well Explained the contraceptive effects Screening examination for pulmonary tuberculosis 07/10/2022 Assessment & Plan (07/10/2022 9:27 AM EDT): Cleared for employment, pending result of TB testing Depressive disorder 07/08/2022 Irregular periods 07/08/2022 Moderate asthma 07/08/2022 Assessment & Plan (12/13/2024 4:03 PM EDT): Extensive counseling about avoiding asthma triggers on today I will refill her albuterol and I will start her on Ellipta 100 mcg Pain in wrist 07/08/2022 Chronic thoracic back pain 02/26/2018 Assessment & Plan (12/13/2024 4:04 PM EDT): Improved she may continue with acetaminophen as needed Herpes simplex 02/26/2018 Moderate persistent asthma without complication 02/26/2018 Assessment & Plan (07/15/2024 12:14 PM EDT): Patient educated to avoid triggers Will continue with same interventions Assessment & Plan (01/19/2024 1:21 PM EDT): Stable c/w same interventions Recurrent major depression in partial remission 02/26/2018 Visual impairment 02/26/2018 Atypical squamous cells of u ndetermined significance (ASCUS) on Papanicolaou smear of cervix 03/06/2017 Encounters Date Type Department Care Team Description 12/27/2024 Refill [facility] [address] [place] [phone] Chioma Tran MD Seasonal allergies 12/13/2024 2:30 PM EDT Office Visit [facility] [address] [place] [phone] Ara Pittman MD Chronic bilateral thoracic back pain (Primary Dx); Moderate persistent asthma, unspecified whether complicated; Class 2 severe obesity due to excess calories with serious comorbidity and body mass index (BMI) of 39.0 to 39.9 in adult ([facility]) 12/13/2024 Travel 10/05/2024 10:00 AM EDT Office Visit [facility] [address] [place] [phone] Chioma Tran MD Acute URI (Primary Dx); Seasonal allergies from Last 3 Months Immunizations Immunization Administration Dates Next Due Hep B, adult 04/03/2020 Influenza injectable quadrivalent preservative f ree 04/29/2023,04/03/2020 Influenza, IIV3, injectable 03/28/2015 Influenza, seasonal, injectable, preservative fr ee 01/19/2024 Pneumococcal Conjugate PCV 20 01/19/2024 Tdap 10/11/2015 Family History Medical History Relation Name Comments Glaucoma Mother Relation Name Status Comments Mother Social History Tobacco Use Types Packs/Day Years [...] housing situation today? I have niki [place] 09/09/[address] you li [...] Orientation Straight 02/25/2022 10 :34 AM EDT Last Filed Vital Signs Vital Sign Reading Time Taken Comments Blood Pressure 115/72 12/13/2024 2:37 PM EDT Pulse 98 12/13/2024 2:37 PM EDT Temperature 36.4 C (97.6 F) 12/13/2024 2:37 PM EDT Respiratory Rate 16 12/13/2024 2:37 PM EDT Oxygen Saturation 98% 12/13/2024 2:37 PM EDT Inhaled Oxygen Concentration - - Weight 101 kg (222 lb) 12/13/2024 2:37 PM EDT Height 160 cm (5' 3 ) 12/13/2024 2:37 PM EDT Body Mass Index 39.33 12/13/2024 2:37 PM EDT Plan of Treatment Health Maintenance Due Date Last Done Comments HIV Screening 1993 Family Planning (PISQ) 2008 HPV Vaccines (1 - 3-dose series) 2008 Hepatitis C Screening 2011 Pap Smear 2014 Hepatitis B Vaccines (2 of 3 - 19+ 3-dose series) 05/01/2020 04/03/2020 COVID-19 Vaccine (3 - season) 2024 01/23/2021, 12/29/2020 Influenza Vaccine (#1) 2024 , 04/29/2023, 04/03/2020, Additional history exists Alcohol/Substance Use Screening 01/18/2025 01/19/2024 Depression Screening 09/09/2025 09/09/2024, 09/10/19 25 Disability Screening 09/09/2025 09/09/2024 SDOH Screening 09/09/2025 09/09/2024 Tobacco Screening 12/13/2025 12/13/2024 Cervical Cancer Screening 07/05/2026 HPV/Cotest 07/05/2026 07/05/2021, 06/26, 09/22/2018 DTaP/Tdap/Td Vaccines (3 - Td or Tdap) 08/01/2027 07/31/2017, 10/11/2015 Lipid Panel 02/22/2028 02/21/2023, 11/28/2021 Zoster Vaccines (1 of 2) 2043 RSV Patients and Patients Aged 60 years or older (1 - 1-dose 75+ series) 2068 Pneumococcal Vaccine: Pediatrics (0 to 5 Years) and At-Risk Patients (6 to 49) Years Completed 01/19/2024 HIB Vaccines Aged Out No longer eligi ble based on patient's age to complete this topic Hepatitis A Vaccines Aged Out No long er eligible based on patient's age to complete this topic IPV Vaccines Aged Out No longer eligi ble based on patient's age to complete this topic Meningococcal B Vaccine Aged Out No l onger eligible based on patient's age to complete this topic Meningococcal Vaccine Aged Out No nati michi eligible based on patient's age to complete this topic RSV under 20 months Aged Out No longe r eligible based on patient's age to complete this topic Rotavirus Vaccines Aged Out No longer eligible based on patient's age to complete this topic Procedures Procedure Name Priority Date/Time Associated Diagnosis Comments POCT INFLUENZA B (ID NOW RAPID MOLECULAR) Routine 10/05/2024 10:21 AM EDT Acute URI POCT INFLUENZA A (ID NOW RAPID MOLECULAR) Routine 10/05/2024 10:20 AM EDT Acute URI POCT RAPID COVID ANTIGEN Routine 10/05/2024 10:19 AM EDT Acute URI LIPID PANEL, STANDARD Routine 02/21/2023 11:58 AM EDT ZZZ HISTORICAL HPV E6/E7 RFLX EWA 16 18/45 Routine 07/05/2021 1:33 PM EST from Last 3 Months or Most Recently Relevant to Health Maintenance Results * POCT Rapid Influenza B BLOOD ID NOW (10/05/2024 10:21 AM EDT) Influenza B Negative Negative, Indeterminate [facility] QC Media Lot # [id number] [facility] Lot# Expiration Date [facility] Swab 10/05/2024 10:2 1 AM EDT us Chioma Tran MD POINT OF CARE TEST ENTER/E DIT ORDERABLES Final Result [facility] [address] [place] [phone] * POCT Rapid Influenza A BLOOD ID NOW (10/05/2024 10:20 AM EDT) Influenza A Negative Negative, Indeterminate [facility] QC Media Lot # [id number] [facility] Lot# Expiration Date [facility] Swab 10/05/2024 10:2 0 AM EDT Chioma Tran MD POINT OF CARE TEST ENTER/E DIT ORDERABLES Final Result [facility] [address] [place] [phone] * POCT Rapid Covid-19 BinaxNOW (10/05/2024 10:19 AM EDT) Rapid COVID Ag Negative QC Media Lot # [id number] Lot# Expiration Date Swab 10/05/2024 10:1 9 AM EDT Chioma Tran MD POINT OF CARE TEST ENTER/E DIT ORDERABLES Final Result * (ABNORMAL) Lipid Panel, Standard (02/21/2023 11:58 AM EDT) Triglycerides 104 <150 mg/dL [facility] Comment:Desirable Triglyceri de: less than 150 mg/dLBorderline High Triglyceride 150-199 mg/dLHigh Triglyceride: 200-499 mg/dLVery High Triglyceride: greater than or equal to 5OO mg/dL Cholesterol 191 <200 mg/dL [facility] Comment:Desirable Cholestero l: less than 200 mg/dLBorderline High Cholesterol: 200-239 mg/dLHigh Cholesterol: greater than 239 mg/dL LDL Cholesterol Calculated 126(H) <100 mg/dL [facility] Comment:Desirable LDL: less than 100 mg/dLNear Optimal/Above Optimal LDL: 110- 129 mg/dLBorderline High LDL: 130-159 mg/dLHigh LDL: 160-189 mg/dLVery High LDL: greater than or equal to 190 mg/dL HDL Cholesterol 45 >40 mg/dL [facility] Comment:Desirable HDL: great er than 40 mg/dL Note: This HDL assay may give artificially low results in patients with liver disease. 02/21/2023 11:5 8 AM EDT 02/21/2023 11:58 AM EDT us Generic External Data Provider LAB BLOOD ORDERAB LES Final Result Performing Organization Address City/[facility]/ZIP Co de Phone Number [facility] [address] [place] [phone] * HPV E6/E7 RFLX EWA 16 18/45 (07/05/2021 1:33 PM EST) HPV mRNA E6/E7 rflx Not Detected Not Detected [facility] Comment: Methodology: Elder Assistant-Mediated Amplification This assay detects E6/E7 viral messenger RNA (mRNA) from 14 high-risk HPV types (16,18,31,33,35,39,45,51,52,56,58,59,66,68). The analytical performance characteristics of this assay have been determined by [employer]. The modifications have not been cleared or approved by the FDA. This assay has been validated pursuant to the CLIA regulations and is used for clinical purposes. For additional information, please refer to http://education.Cadent/faq/LQZ209x9 (This link if provided for information/ educational purposes only.) THIS TEST WAS PERFORMED AT: [employer] [address] [phone] RANDI SEVERINO MD 07/05/2021 1:33 PM EST us [place] [place] HISTORICAL/NON ORDERABLE LABS Fi nal Result [facility] [address] from Last 3 Months or Most Recently Relevant to Health Maintenance [facility] Care Teams Windows Systems Administrator Relationship Specialty Start Date End Date Ara Pittman MD [address] [place] [address] PCP - General Family Medicine 09/09/18 Sandy Gill Lean Manufacturing EngineerNational Stormwater Leader 04/16/24
--- OUTSIDE RECORDS SUMMARY | 2024-12-28 12:41 | XMS_ITS | Encounter Summary ---
Author Organization [employer] Address [address] [facility] [address] [place] [address] Care Team Providers Care Office Machine Installer Name Role Phone Ara Pittman MD Primary Care Provide r Encounter Details Date Type Department Care Team ([facility] st Contact Info) Description 08/31/2024 Orders Only [facility] [address] [place] [address] Ara Pittman MD [address] [place] [address] Social History Tobacco Use Types Packs/Day Years [...] documented as of this encounter Care Teams Office Machine Installer Relationship Specialty Start Date End Date Ara Pittman MD [address] [place] [address] PCP - General Family Medicine 09/09/18 Sandy Gill Hat MenderWater Safety Teacher 04/16/24 documented as of this encounter
--- OUTSIDE RECORDS SUMMARY | 2024-12-28 12:41 | XMS_ITS | Encounter Summary ---
Author Organization [employer] Address [address] [facility] [address]t [place] [address] Care Team Providers Care Dental Professional Name Role Phone Ara Pittman MD Primary Care Provide r Reason for Visit * Reason Onset Date Comments Appointment Request 03/19/2023 Encounter Details Date Type Department Care Team ([facility] Contact Info) Description 03/19/2023 Telephone [facility] [address] [place] [address] Ara Pittman MD [address] [place] [address] Appointment Request Social History Tobacco Use Types [...] documented as of this encounter Care Teams Dental Professional Relationship Specialty Start Date End Date Ara Pittman MD [address] [place] [address] PCP - General Family Medicine 09/09/18 Sandy Gill Executive Administrative AsstShearer Screen Measurer And Trimmer 04/16/24 documented as of this encounter
== END 2024-12-28 11:38 | disposition home or self-care (01) ==
LOC: HO.HGI 11:07
PROVIDERS: PCP Internal Medicine; Visit Provider Nurse Practitioner Family
DX: K21.9 Gastro-esophageal reflux disease without esophagitis (principal); R10.13 Epigastric pain; R14.0 Abdominal distension (gaseous); K59.01 Slow transit constipation
CPT/HCPCS: 99213

== ENCOUNTER → 2024-12-28 11:04 | Outpatient (BNVA) | payer MEDICAID, SELFPAY | PROVIDERS: PCP Internal Medicine; Visit Provider Nurse Practitioner Family | DX: K21.9 Gastro-esophageal reflux disease without esophagitis (principal); R10.13 Epigastric pain; R14.0 Abdominal distension (gaseous); K59.01 Slow transit constipation; K59.00 Constipation, unspecified | CPT/HCPCS: 99212 ==

== ENCOUNTER 2025-01-08 12:28 | Emergency (ER) | payer MEDICAID, SELFPAY ==
[2025-01-08 12:37] VITALS: BP 117/78; PULSE 91; RESP 14; TEMP 36.7; O2SAT 97; BMI 38.3
--- NOTE | 2025-01-08 12:47 | ED.GENADULT ---
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 Admits her younger son tested positive for strep throat yesterday. Denies fever, chills, chest pain, cough, abdominal pain, N/V/D. Related Data Home Medications ?Medication ?Instructions ?Recorded ?Confirmed albuterol sulfate 90 mcg/actuation 2 puff inhalation QID 10/10/20 09/12/23 aerosol inhaler nebulizers #1 ea 10/10/20 10/01/22 fluticasone propionate 110 2 puff inhalation BID 10/01/22 09/12/23 mcg/actuation HFA aerosol inhaler (Flovent HFA) drospirenone 3 mg-ethinyl 1 tab PO QAM 12/28/24 estradiol 0.02 mg tablet Previous Rx's ?Medication ?Instructions ?Recorded valacyclovir 1 gram tablet 1,000 mg PO DAILY #30 tabs 10/01/22 esomeprazole magnesium 40 mg 40 mg PO DAILY #30 caps 12/28/24 capsule,delayed release (Nexium) sennosides 8.6 mg tablet (Natural 17.2 mg (2 x 8.6 mg) PO BEDTIME 12/28/24 Senna Laxative) constipation #60 tabs penicillin V potassium 500 mg 500 mg PO BID 10 days #20 tabs 01/08/25 tablet Allergies Allergy/AdvReac Type Severity Reaction Status Date / Time No Known Allergies Allergy Verified 01/08/25 12:38 Review of Systems Review of Systems: Yes all other systems are reviewed and are negative PMFSH Past Medical History Attestation statement: The following information was validated with the patient. Source: old records reviewed and nursing notes reviewed Medical History Morbid obesity Back pain Anxiety Depression GERD (gastroesophageal reflux disease) BMI 39.0-39.9,adult Obesity History of asthma Surgical History Hx of wisdom tooth extraction Hx of cholecystectomy Hx of carpal tunnel repair Hx of emergency section Family History Family History Mother Hypertension Arthritis Asthma Allergy Family/Other Diabetes Hypertension Arthritis Brother No problems noted. Brother Heart problem Brother No problems noted. Sister Asthma Sister Obesity Son Autistic disorder Son Autistic disorder Social History Social History Alcohol intake: never Patient Tobacco Use Status: Never used Tobacco Advance Directives: No Advance Directives Information Provided: No Current occupational status: unemployed Current occupation: right handed Physical Exam ED Vital Signs: Vital Signs - 24 hr 01/08/25 12:37 Temperature 98.0 F Pulse Rate 91 Respiratory Rate 14 Blood Pressure 117/78 Pulse Oximetry 97 Oxygen Delivery Method Room Air BMI result Body Mass Index 38.3 Vital signs stable, afebrile Const General: cooperative, healthy appearing, comfortable, no acute distress, alert and awake Orientation/consciousness: patient oriented x3 Limitations: no limitations HENMT Other: + posterior oropharynx erythematous, no edema, uvula is midline, no tonsilar exudates or peritonsillar masses, controlling secretions and speaking in complete sentences, no muffled voice Head: Yes normal to inspection, Yes normocephalic and Yes atraumatic Ears: hearing grossly normal bilaterally, external ears normal, TM's normal bilaterally, EAC's normal, mastoids normal and no periauricular adenopathy General nose exam: Normal external nose present and No nasal discharge present Face and sinus: Yes normal facial exam and Yes sinuses nontender Eyes General: appearance normal, both eyes and all related structures Pupils: Equal, round and reactive pupils present Neck Other: + no cervical, submandibular or submental LAD. Neck: Yes normal visual inspection and Yes full ROM Resp Effort & Inspection: normal respiratory effort and able to speak in complete sentences Auscultation: clear to auscultation bilaterally Cardio Rate: regular rate Rhythm: regular rhythm GI Inspection: Yes normal to inspection Palpation (GI): Soft to palpation and nontender Skin General skin exam: no rashes or lesions noted Neuro General: patient oriented x3, gait normal and moves all extremities Cranial nerves: Yes Equal, round and reactive pupils present Extrem General: Yes normal to inspection Course Course Course Narrative: Rapid medical examination performed in triage by Marge Akers PA-C. Patient is a 29 year old assigned female at presenting to the emergency department with a sore throat and burning eyes. Detailed physical exam and review of systems are deferred to the independent living specialist. Swabs ordered. Patient placed back in the waiting room pending room availability and results. Reevaluation(s) Reevaluation #1: Patient tested positive for strep throat. Negative for COVID, flu. Her vitals are stable and exam is reassuring. Will send a 10 day course of penicillin to pharmacy for treatment. Patient has remained stable throughout ED visit today. Discussed worrisome signs and symptoms and when to return to the ED. All questions answered at this time. Patient is agreeable with disposition and stable for discharge. Medical Decision Making Medical Decision Making MDM Narrative: 29 year old Macedonian speaking female presents to the ED today for evaluation of sore throat and nasal congestion x2 days. vital signs stable, afebrile, not hypoxic. she is well appearing and in NAD. on exam, posterior oropharynx erythematous, no edema, uvula is midline, no tonsilar exudates or peritonsillar masses, controlling secretions and speaking in complete sentences, no muffled voice Differential diagnosis includes strep throat, viral syndrome. Lower suspicion for mono. 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 Plan for viral and strep swabs, disposition. Differential Diagnosis Differential Diagnoses: The differential diagnosis associated with the presentation includes as above. Admission/Observation Not indicated Lab Data [facility] Lab Attestation statement: I reviewed the patient's lab results. as above Labs: Lab Results 01/08/25 Range/Units 12:50 COVID-19 (OMER) Negative (Negative) COVID-19 Clin Com See Note Influenza Type A (SHENA) Negative (Negative) Influenza Type B (SHENA) Negative (Negative) Influenza A & B Note See Note S. pyogenes GrpA SHENA Positive A (Negative) External Record Review External record reviewed: Inpatient record Prescription Management I considered prescription management with: Antibiotic (Penicillin) Social Determinants Patient?s care significantly limited by Social Determinants of Health including: Other Social Determinant of Health Critical Care Time Critical Care Time Critical Care Time: No Discharge Plan Discharge Clinical Impression: Acute streptococcal pharyngitis Patient Disposition: Home, Self-Care Instructions: Strep Throat (ED) Additional Instructions: You were seen in the ED today for evaluation of sore throat. You tested positive for strep throat. Penicillin is an antibiotic that has been sent to your pharmacy. Take this twice daily for the next 10 days to treat strep throat. Do not stop taking these antibiotics early or miss any doses as this may cause infection to return or worsen. Cepacol throat lozenges have been sent to your pharmacy to help with throat pain. You may also purchase [id number] chloraseptic spray to numb your throat. Take Tylenol and ibuprofen as needed for body aches or fevers. Make sure to change your toothbrush as this contains bacteria. Strep throat is contagious. If anyone else in your household is exhibiting symptoms, please advise them to come to the ED, urgent care, or to see their primary care provider. Follow up with your primary care provider this week. Return to the Emergency Department if you experience worsening or uncontrolled pain, tongue swelling, difficulty swallowing, change in your voice, difficulty breathing, fevers 100.4?F or greater, recurrent vomiting, development of a rash, or any other concerning symptoms. In the case of emergency, call 911.? Prescriptions: New penicillin V potassium 500 mg tablet 500 mg PO BID 10 Days Qty: 20 0RF No Action albuterol sulfate 90 mcg/actuation HFA aerosol inhaler 2 puff inhalation QID (DME) nebulizers Misc See Rx Instructions .ROUTE .MEDSUPPLY Qty: 1 Rx Instructions: As directed fluticasone propionate [Flovent HFA] 110 mcg/actuation HFA aerosol inhaler 2 puff inhalation BID valacyclovir 1 gram tablet 1,000 mg PO DAILY Qty: 30 0RF Rx Instructions: take for 3-5 days for outbreak prn drospirenone-ethinyl estradiol 3-0.02 mg tablet 1 tab PO QAM sennosides [Natural Senna Laxative] 8.6 mg tablet 17.2 mg PO BEDTIME Qty: 60 3RF esomeprazole magnesium [Nexium] 40 mg capsule,delayed release(DR/EC) 40 mg PO DAILY Qty: 30 3RF Referrals: Ara Pittman MD [Primary Care Provider, Internal Medicine] Stand Alone Forms: Work/School Release Discharge Date/Time: 01/08/25 14:11 Print Language: Macedonian
[2025-01-08 13:11] LABS: IDNOW Serial# 08D9AD1C; Strep A Nucleic Acid Positive (Negative)
[2025-01-08 13:20] LABS: COVID-19 Test Negative (Negative); IDNOW Serial# 55D5AD1C
[2025-01-08 13:23] LABS: IDNOW Serial# 58CA691E; Influenza B2 Negative (Negative)
--- OUTSIDE RECORDS SUMMARY | 2025-01-08 13:37 | XMS_ITS | Encounter Summary ---
Author Organization [employer] Address [address] [facility] [address] [place] [address] Care Team Providers Care Baseball Sewer Hand Name Role Phone Ara Pittman MD Primary Care Provide r Reason for Visit * Reason Onset Date Comments Appointment Request 03/19/2023 Encounter Details Date Type Department Care Team ([facility] Contact Info) Description 03/19/[address] [facility] MEDICINE [address] [place] [address] Ara Pittman MD [address] [place] [address] Appointment Request Social History Tobacco Use Types [...] Care Team (Late st Contact Info) Description 03/17/2025 2:30 PM EST Office Visit [facility] MEDICINE [address] [place] [address] Ara Pittman MD [address] [place] [address] documented as of this encounter Visit Diagnoses Not on filedocumented in this encounter Additional Health Concerns Assessment Noted Time PHQ-9 Depression Total Score: 5 07/09/19 23 1:12 PM EDT documented as of this encounter Care Teams Baseball Sewer Hand Relationship Specialty Start Date End Date Ara Pittman MD [address] [place] [address] PCP - General Family Medicine 09/09/18 Sandy Gill Wall TaperProduct Safety Tester 04/16/24 documented as of this encounter
--- OUTSIDE RECORDS SUMMARY | 2025-01-08 13:37 | XMS_ITS | Encounter Summary ---
Author Organization [employer] Address [address] [facility] [address] [place] [address] Care Team Providers Care International Affairs Vice President Name Role Phone Ara Pittman MD Primary Care Provide r Reason for Visit * Reason Onset Date Comments NOV RECALL 01/06/2025 Encounter Details Date Type Department Care Team ([facility] st Contact Info) Description 01/06/2025 Telephone [facility] [address] [place] [address] Ara Pittman MD [address] [place] [address] NOV RECALL Social History Tobacco Use Types Packs/Day Years [...] encounter Miscellaneous Notes * Telephone Encounter - Abelino Maldonado [place] - 01/06/2025 9:28 AM EDT T\C to pt to schedule a (NOV RECALL) f\u with pcp. Pt agreed to come in on 03/17/2025 at 2:30 Pm. Mailed appt info. documented in this encounter Plan of Treatment Upcoming Encounters Date Type Department Care Team ([facility] st Contact Info) Description 03/17/2025 2:30 PM EST Office Visit [facility] MEDICINE [address] [place] [address] Ara Pittman MD [address] [place] [address] documented as of this encounter Visit Diagnoses Not on filedocumented in this encounter Additional Health Concerns Assessment Noted Time PHQ-9 Depression Total Score: 0 09/10/19 10:53 AM EDT documented as of this encounter Care Teams International Affairs Vice President Relationship Specialty Start Date End Date Ara Pittman MD [address] [place] [address] PCP - General Family Medicine 09/09/18 Sandy Gill Jewelry FacerManager Urgent Care 04/16/24 documented as of this encounter
--- OUTSIDE RECORDS SUMMARY | 2025-01-08 13:37 | XMS_ITS | Encounter Summary ---
Author Organization [employer] Address [address] [facility] [address] [place] [address] Care Team Providers Care Supervisor Cigarette Making Department Name Role Phone Ara Pittman MD Primary Care Provide r Encounter Details Date Type Department Care Team ([facility] st Contact Info) Description 03/09/2024 Orders Only [facility] [address] [place] [address] Bridger Harper MD [address] [place] [address] Social History Tobacco Use Types Packs/Day Years [...] as of this encounter Plan of Treatment Upcoming Encounters Date Type Department Care Team (Late st Contact Info) Description 03/17/2025 2:30 PM EST Office Visit [facility] MED[facility]INE [address] [place] [phone] Ara Pittman MD [address] [place] [phone] documented as of this encounter Visit Diagnoses Not on filedocumented in this encounter Additional Health Concerns Assessment Noted Time PHQ-9 Depression Total Score: 0 07/14/19 11:00 AM EDT documented as of this encounter Care Teams Supervisor Cigarette Making Department Relationship Specialty Start Date End Date Ara Pittman MD [address] [place] [phone] PCP - General Family Medicine 09/09/18 Sandy Gill City CollectorMarine Mammal Trainer 04/16/24 documented as of this encounter
--- OUTSIDE RECORDS SUMMARY | 2025-01-08 13:37 | XMS_ITS | Encounter Summary ---
Author Organization [employer] Address [address] [facility] [address] [place] [address] Care Team Providers Care Anode Adjuster Name Role Phone Ara Pittman MD Primary Care Provide r Encounter Details Date Type Department Care Team ([facility] st Contact Info) Description 08/31/2024 Orders Only [facility] MED[facility]INE [address] [place] [address] Ara Pittman MD [address] [place] [address] Social History Tobacco Use Types Packs/Day Years [...] Description 03/17/2025 2:30 PM EST Office Visit [facility] [address] [place] [phone] Ara Pittman MD [address] [place] [phone] documented as of this encounter Visit Diagnoses Not on filedocumented in this encounter Additional Health Concerns Assessment Noted Time PHQ-9 Depression Total Score: 0 07/14/19 11:00 AM EDT documented as of this encounter Care Teams Anode Adjuster Relationship Specialty Start Date End Date Ara Pittman MD [address] [place] [phone] PCP - General Family Medicine 09/09/18 Sandy Gill Weather Algorithm ScientistPlumbing Inspector 04/16/24 documented as of this encounter
--- OUTSIDE RECORDS SUMMARY | 2025-01-08 13:37 | XMS_ITS | Clinical Summary ---
Author Organization [employer] Address [address] [facility] [address] [place] [address] Care Team Providers Care Rock Wool Applicator Name Role Phone Ara Pittman MD Primary [...] hours. Active ergocalciferol (Vitamin D-2) 1.25 MG (24526 UT) capsule take 1 capsule by oral [...] capsule take one daily Active sodium chloride ([place]) 0.65 % nasal spray 1-2 sprays on [...] day. 30 tablet 11 025 2025 Active Ketotifen Fumarate 0.035 % solutionIndicati ons:Seasonal allergies Administer 1 drop into affected eye(s) if needed in the morning and at bedtime (allergies). 10 mL 3 025 Active sodium chloride ([place]) 0.65 % nasal sprayIndications :Acute URI Administer [...] (BMI) of 39.0 to 39.9 in adult ([facility]) Inject 0.5 mL (2.5 mg) under the skin 1 (one) time per week. 2 mL 2 025 Active cetirizine (ZyrTEC) 10 MG tabletIndication s:Seasonal allergies TAKE 1 TABLET BY MOUTH EVERY DAY NEEDED FOR ALLERGIES 90 tablet Active fluticasone (Flonase) 50 MCG/ACT nasal sprayIndications :Seasonal allergies INSTILL 1 SPRAY IN EACH NOSTRIL ONCE DAILY 48 g Active albuterol (Ventolin HFA) 108 (90 Base) [...] eorder (will not trigger notification to Pharmacy)) cetirizine (ZyrTEC) 10 MG tabletIndication s:Seasonal allergies Take 1 tablet (10 mg) by mouth if needed each day for allergies. 30 tablet 2 025 2024 Discontinued fluticasone (Flonase) 50 MCG/ACT nasal sprayIndications :Seasonal allergies Use 1 spray each nostril daily. Shake gently. Before first use, prime pump. After use, clean tip and replace cap. 16 g 2 025 2024 Discontinued Active Problems Problem Noted Date Diagnosed Date [...] Encounters Date Type Department Care Team Description 01/08/2025 Orders Only GENERIC EXTERNAL DATA DEPARTMENT Provider, Generic External Data 01/06/2025 Telephone [facility] [address] [place] [address] Ara Pittman MD NOV RECALL 12/27/2024 Refill [facility] [address] [place], [place] [phone] Chioma Tran MD Seasonal allergies 12/13/2024 2:30 PM EDT Office Visit [facility] [address] [place], [place] [phone] Ara Pittman MD Chronic bilateral thoracic back pain (Primary Dx); Moderate persistent asthma, unspecified whether complicated; Class 2 severe obesity due to excess calories with serious comorbidity and body mass index (BMI) of 39.0 to 39.9 in adult ([facility]) 12/13/2024 Travel from Last 3 Months Immunizations Immunization Administration [...] 12/13/2024 2:37 PM EDT Plan of Treatment Upcoming Encounters Date Type Department Care Team (Late st Contact Info) Description 03/17/2025 2:30 PM EST Office Visit [facility] [address] [place], [place] [phone] Ara Pittman MD [address] [place], [place] [phone] Health Maintenance Due Date Last Done Comments HIV Screening 1993 Family Planning (PISQ) 2008 HPV Vaccines (1 - 3-dose series) 2008 Hepatitis C Screening 2011 Pap Smear 2014 Hepatitis B Vaccines (2 of 3 - 19+ 3-dose series) 05/01/2020 04/03/2020 COVID-19 Vaccine (3 - 2024- season) 2024 01/23/2021, 12/29/2020 Influenza Vaccine (#1) [...] Procedure Name Priority Date/Time Associated Diagnosis Comments COVID-19 ID NOW (BLOOD) Routine 01/08/2025 12:50 PM EDT INFLUENZA A B2 ID NOW (BLOOD) Routine 01/08/2025 12:50 PM EDT STREP A NUCLEIC ACID Routine 01/08/2025 12:50 PM EDT LIPID PANEL, STANDARD Routine 02/21/2023 11:58 AM EDT ZZZ HISTORICAL HPV E6/E7 RFLX EWA 16 18/45 Routine 07/05/2021 1:33 PM EST from Last 3 Months or Most Recently Relevant to Health Maintenance Results * Influenza A B2 ID NOW (Blood) (01/08/2025 12:50 PM EDT) IDNOW SERIAL# [id number] [facility] Influenza A Negative Negative [facility] Influenza B2 Negative Negative [facility] Influenza A B2 Note See Note [facility] Comment:The Blood ID NOW In fluenza A B2 test is used for thequalitative detection of influenza A and B from patientswith signs and symptoms of respiratory infection.Negative results do not preclude influenza virus infectionand should not be used as the sole basis for diagnosis,treatment or other patient management decisions.There is a risk of false negative results due to thepresence of variants in the viral targets of the assay, lowlevels of virus in the specimen and co- infection withRespiratory Syncytial Virus. 01/08/2025 12:5 0 PM EDT 01/08/2025 1:01 PM EDT Generic External Data Provider LAB MICROBIOLOGY - GENERAL ORDERABLES Final Result Performing Organization Address [facility] de Phone Number [facility] [address] [place] [phone] * (ABNORMAL) Strep A Nucleic Acid (01/08/2025 12:50 PM EDT) IDNOW SERIAL# [id number] [facility] Strep A Nucleic Acid Positive(A ) Negative [facility] Comment:All test results mus t be correlated with clinical findings.This test has not been evaluated for monitoring treatment ofinfection.Additional follow-up testing using the culture method isrequired if the result is negative and clinical symptomspersist, or in the event of an acute rheumatic feveroutbreak. 01/08/2025 12:5 0 PM EDT 01/08/2025 1:01 PM EDT us Generic External Data Provider LAB MICROBIOLOGY - GENERAL ORDERABLES Final Result Performing Organization Address [facility] Co de Phone Number [facility] [address] [place] [phone] * COVID-19 ID NOW (BLOOD) (01/08/2025 12:50 PM EDT) IDNOW SERIAL# [id number] [facility] COVID-19 TEST Negative Negative [facility] COVID-19 NOTE See Note [facility] Comment: Results are for the identification of SARS-CoV2 RNA. TheSARS-CoV2 RNA is generally detectable in respiratory samplesduring the acute phase of infection. Positive results areindicative of the presence of SARS-CoV-2 RNA; clinicalcorrelation with patient history and other diagnosticinformation is necessary to determine patient infectionstatus. Positive results do not rule out bacterial infectionor co- infection with other viruses.Testing facilities within the [facility] and [facility] are required to report all positive results tothe appropriate public health authorities.Negative results should be treated as presumptive and, ifinconsistent with clinical signs and symptoms or necessaryfor patient management, should be tested with differentauthorized or cleared molecular tests. Negative results donot preclude SARS-CoV2 RNA infection and should not be usedas the sole basis for patient management decisions. Negativeresults should be considered in the context of a patient'srecent exposures, history and the presence of clinical signsand symptoms consistent with COVID-19.This test has been authorized by the FDA under an EmergencyUse Authorization (EUA) for use by authorized laboratories.Testing performed on the frents NOW utilizing NAAT. 01/08/2025 12:5 0 PM EDT 01/08/2025 1:01 PM EDT us Generic External Data Provider LAB MOLECULAR LESLIE GNOSTICS ORDERABLES Final Result [facility] [address] [place] [phone] * (ABNORMAL) Lipid Panel, Standard (02/21/2023 11:58 AM EDT) Triglycerides 104 <150 mg/dL [facility] Comment:Desirable Triglyceri de: less than 150 mg/dLBorderline High Triglyceride 150-199 mg/dLHigh Triglyceride: 200-499 mg/dLVery High Triglyceride: greater than or equal to 5OO mg/dL Cholesterol 191 <200 mg/dL [facility] Comment:Desirable Cholestero l: less than 200 mg/dLBorderline High Cholesterol: 200-239 mg/dLHigh Cholesterol: greater than 239 mg/dL LDL Cholesterol Calculated 126(H) <100 mg/dL [facility] Comment:Desirable LDL: less than 100 mg/dLNear Optimal/Above Optimal LDL: 110- 129 mg/dLBorderline High LDL: 130-159 mg/dLHigh LDL: 160-189 mg/dLVery High LDL: greater than or equal to 190 mg/dL HDL Cholesterol 45 >40 mg/dL [facility] Comment:Desirable HDL: great er than 40 mg/dL Note: This HDL assay may give artificially low results in patients with liver disease. 02/21/2023 11:5 8 AM EDT 02/21/2023 11:58 AM EDT us Generic External Data Provider LAB BLOOD ORDERAB LES Final Result [facility] [address] [place] [phone] * HPV E6/E7 RFLX EWA 16 18/45 (07/05/2021 1:33 PM EST) Pathologist [facility] HPV mRNA E6/E7 rflx Not Detected Not Detected [facility] Comment: Methodology: Multimedia Developer-Mediated Amplification This assay detects E6/E7 viral messenger RNA (mRNA) from 14 high-risk HPV types (16,18,31,33,35,39,45,51,52,56,58,59,66,68). The analytical performance characteristics of this assay have been determined by [employer]. The modifications have not been cleared or approved by the FDA. This assay has been validated pursuant to the CLIA regulations and is used for clinical purposes. For additional information, please refer to http://education.[employer]/faq/EAW040a4 (This link if provided for information/ educational purposes only.) THIS TEST WAS PERFORMED AT: [employer] [address] [place] [address],[place] [address] RANDI SEVERINO MD 07/05/2021 1:33 PM EST us Maddy Hanson HISTORICAL/NON ORDERABLE LABS Fi nal Result [facility] [address] [place] [phone], from Last 3 Months or Most Recently Relevant to Health Maintenance Insurance [facility] C3 HSN PARTIAL * Guarantor: Aracelis Soriano Account Type Relation to Patient Date of Phone Billing Address Personal/Family Self 1995 [address] [place] [address] Care Teams Rock Wool Applicator Relationship Specialty Start Date End Date Ara Pittman MD [address] [place] [phone] PCP - General Family Medicine 09/09/18 Sandy Gill Slice Cutting Machine Operator HelperCigarette Making Machine Operator 04/16/24
--- OUTSIDE RECORDS SUMMARY | 2025-01-08 13:37 | XMS_ITS | Encounter Summary ---
Author Organization [employer] Address [address] [facility] [address] [place] [address] Care Team Providers Care Marketing Operations Associate Name Role Phone Ara Pittman MD Primary Care Provide r Reason for Visit * Reason Comments Med Refill Encounter Details Date Type Department Care Team ([facility] st Contact Info) Description 01/11/2024 Refill [facility] [address] [place] [address] Ara Pittman MD [address] [place] [address] Moderate persistent asthma, unspecified whether complicated Social [...] Description 03/17/2025 2:30 PM EST Office Visit [facility] [address] [place] [address] Ara Pittman MD [address] [place] [address] documented as of this encounter Visit Diagnoses Diagnosis Moderate persistent asthma, unspecified whether complicated documented in this encounter Additional Health Concerns Assessment Noted Time PHQ-9 Depression Total Score: 0 07/14/19 11:00 AM EDT documented as of this encounter Care Teams Marketing Operations Associate Relationship Specialty Start Date End Date Ara Pittman MD [address] [place] [phone] PCP - General Family Medicine 09/09/18 Sandy Gill Member Service RepresentativeSchool Cafeteria Cook Head 04/16/24 documented as of this encounter
--- OUTSIDE RECORDS SUMMARY | 2025-01-08 13:37 | XMS_ITS | Encounter Summary ---
Author Organization [employer] Address [address] [facility] [address] [place] [address] Care Team Providers Care Fishing Gear Mechanic Name Role Phone Ara Pittman MD Primary Care Provide r Encounter Details Date Type Department Care Team (Late st Contact Info) Description 01/08/2025 Orders Only GENERIC EXTERNAL DATA DEPARTMENT Provider, Generic External Data Social History Tobacco Use Types Packs/Day Years [...] Upcoming Encounters Date Type Department Care Team ([facility] st Contact Info) Description 03/17/2025 2:30 PM EST Office Visit [facility] [address] [place] [phone] Ara Pittman MD [address] [place], [place] [phone] documented as of this encounter Procedures Procedure Name Priority Date/Time Associated Diagnosis Comments INFLUENZA A B2 ID NOW (BLOOD) Routine 01/08/2025 12:50 PM EDT STREP A NUCLEIC ACID Routine 01/08/2025 12:50 PM EDT COVID-19 ID NOW (BLOOD) Routine 01/08/2025 12:50 PM EDT documented in this encounter Results * Influenza A B2 ID NOW (Blood) (01/08/2025 12:50 PM EDT) IDNOW SERIAL# [id number] [facility] Influenza A Negative Negative [facility] Influenza B2 Negative Negative [facility] Influenza A B2 Note See Note [facility] Comment:The Blood ID NOW In fluenza [...] LAB MICROBIOLOGY - GENERAL ORDERABLES Final Result [facility] [address] [place] [phone] * COVID-19 ID NOW ([employer]) (01/08/2025 12:50 PM EDT) IDNOW SERIAL# [id number] [facility] COVID-19 TEST Negative Negative [facility] COVID-19 NOTE See Note [facility] Comment: Results are for the identification of SARS-CoV2 RNA. TheSARS-CoV2 RNA is generally detectable in respiratory samplesduring the acute phase of infection. Positive results areindicative of the presence of SARS-CoV-2 RNA; clinicalcorrelation with patient history and other diagnosticinformation is necessary to determine patient infectionstatus. Positive results do not rule out bacterial infectionor co- infection with other viruses.Testing facilities within the [facility] and [facility] are required to report all positive results [...] use by authorized laboratories.Testing performed on the Blood ID NOW utilizing NAAT. 01/08/2025 12:5 0 PM EDT 01/08/2025 1:01 PM EDT Generic External Data Provider LAB MOLECULAR LESLIE GNOSTICS ORDERABLES Final Result Performing Organization Address [facility] de Phone Number [facility] [address] [place] [phone] * (ABNORMAL) Strep A Nucleic Acid (01/08/2025 12:50 PM EDT) IDNOW SERIAL# [id number] [facility] Strep A Nucleic Acid Positive(A ) Negative [facility] Comment:All test results mus t be [...] GENERAL ORDERABLES Final Result Performing Organization Address [facility] Co de Phone Number [facility] [address] [place] [phone] documented in this encounter Visit Diagnoses Not on filedocumented in this encounter Additional Health Concerns Assessment Noted Time PHQ-9 Depression Total Score: 0 09/10/19 25 10:53 AM EDT documented as of this encounter Care Teams Fishing Gear Mechanic Relationship Specialty Start Date End Date Ara Pittman MD [address] [place] [phone] PCP - General Family Medicine 09/09/18 Sandy Gill Employment TrainerPony Ride Operator 04/16/24 documented as of this encounter
--- OUTSIDE RECORDS SUMMARY | 2025-01-08 13:37 | XMS_ITS | Encounter Summary ---
Author Organization [employer] Address [address] [facility] [address] [place] [address] Care Team Providers Care Assistant Signal Maintainer Name Role Phone Ara Pittman MD Primary Care Provide r Reason for Visit * Reason Onset Date Comments Appointment Request 06/07/2022 Encounter Details Date Type Department Care Team (Late Contact Info) Description 06/07/[address] [facility] [address] [place] [address] Ara Pittman MD [address] [place] [address] Appointment Request Social History Tobacco Use Types [...] Encounters Date Type Department Care Team (Late Contact Info) Description 03/17/2025 2:30 PM EST Office Visit [facility] [address] [place] [address] Ara Pittman MD [address] [place], [place] [phone] documented as of this encounter Visit Diagnoses Not on filedocumented in this encounter Care Teams Assistant Signal Maintainer Relationship Specialty Start Date End Date Ara Pittman MD [address] [place] [phone] PCP - General Family Medicine 09/09/18 Sandy Gill Freezer WorkerAccountancy Professor 04/16/24 documented as of this encounter
[2025-01-08 14:11] VITALS: BP 117/78; PULSE 91; RESP 14; TEMP 36.7; O2SAT 97
== END 2025-01-08 14:11 | disposition home or self-care (01) ==
PROVIDERS: Emergency Provider Emergency Medicine; PCP Internal Medicine
DX: J02.0 Streptococcal pharyngitis (principal); Z03.818 Encounter for observation for suspected exposure to other biological agents ruled out
CPT/HCPCS: 87502; 87635; 87651; 99282; 99283